=== PATIENT | male | born 1955 | race Caucasian/White ===

== ENCOUNTER 2018-06-09 16:02 | Inpatient (IN) ==
[2018-06-09 17:00] LABS: Basophils # 0.1 K/mcL (0.0-0.2); Basophils % 0.3 %; Eosinophils # 0.4 K/mcL (0.0-0.6); Eosinophils % 2.3 %; Hematocrit 37.2 % (37.5-50.1); Hemoglobin 12.8 g/dL (12.9-16.9); Immature Granulocytes % 0.4 % (0-4); Lymphocytes # 10.7 K/mcL (0.6-4.6); Lymphocytes % 59.2 %; Mean Corpuscular HGB Conc 34.4 g/dL (31.6-35.5); Mean Corpuscular Hemoglobin 30.3 pg (28.0-33.3); Mean Corpuscular Volume 88.2 fL (83.0-100.0); Mean Platelet Volume 9.7 fL (9.4-12.4); Monocytes # 0.8 K/mcL (0.0-1.3); Monocytes % 4.4 %; Platelet Count 277 K/mcL (140-400); Red Blood Count 4.22 M/mcL (4.19-5.50); Segmented Neutrophils % 33.4 %
[2018-06-09 17:03] LABS: Neutrophils # 6.1 K/mcL (1.6-8.9)
[2018-06-09 17:19] LABS: Calcium 9.3 mg/dL (8.6-10.3); Potassium 3.9 mEq/L (3.5-5.1)
[2018-06-09] MEDS ORDERED: Cefepime HCl 2,000 MG in 0.9 % Sodium Chloride Mini Bag 100 ML IVPB STA (17:38)
[2018-06-09] MEDS ORDERED: 0.9 % Sodium Chloride 1,000 ML IVC ONE (17:38)
--- NOTE | 2018-06-09 18:08 | Emergency Department Note ---
Disposition Clinical Impression: Osteomyelitis Qualifiers: Osteomyelitis type: unspecified type Osteomyelitis location: foot Laterality: left Qualified Code(s): M86.9 - Osteomyelitis, unspecified Disposition: Admitted As Inpatient Condition: Good Referrals: Skye Callahan CNP [Primary Care Provider] - Forms: ED Satisfaction Letter Extremity Problem HPI - General Chief complaint: ED Extremity Problem,Nontraumatic Stated complaint: LEFT FOOT INFECTION Time Seen by Provider: 06/09/18 16:15 Source: patient Mode of arrival: ambulatory Limitations: no limitations Nursing Notes Reviewed: Yes Vital Signs Reviewed: Yes - History of Present Illness HPI Narrative: Patient brought in today for evaluation of concern for osteomyelitis. Patient had x-ray at urgent care that resulted today and they called the police to locate him secondary to him not having a phone. He was in the [place] and the police notified him of results and brought here to [facility]. Patient states swelling toes but that has been constant for what he describes as "quite a while" but significantly worse over the last 3 days. Patient has had fevers and chills and generalized nausea Pain Scale: 6 - Related Data Home Medications Medication Instructions Recorded Confirmed Atorvastatin Calcium [Lipitor] 20 mg PO HS 06/09/18 06/09/18 Doxycycline Hyclate [Doxycycline 100 mg PO BID 06/09/18 06/09/18 Hyclate] Gabapentin [Neurontin] 1,200 mg PO TID 06/09/18 06/09/18 Insulin Lispro Protamin/Lispro 20 units SQ BID 06/09/18 06/09/18 [Humalog Mix 50-50 Kwikpen] Metformin HCl [Metformin HCl] 1,000 mg PO BID 06/09/18 06/09/18 Metoprolol Tartrate [Metoprolol 100 mg PO DAILY 06/09/18 06/09/18 Tartrate] Allergies Allergy/AdvReac Type Severity Reaction Status Date / Time Penicillins [PCN] Allergy Anaphylaxis Verified 06/09/18 18:25 Tetanus Vaccines and Toxoid Allergy Anaphylaxis Verified 06/09/18 18:25 Review of Systems: As Per HPI Constitutional: Reports: fever, chills, weakness (generalized) Cardiovascular: Denies: chest pain Respiratory: Denies: cough, dyspnea Gastrointestinal: Reports: nausea. Denies: abdominal pain, vomiting Musculoskeletal: Reports: joint swelling, arthralgia Integumentary: Reports: lesions (erythema) Neurological: Denies: headache Past Medical History - Past Medical History Medical history: Reports: CVA, diabetes, hyperlipidemia, myocardial infarction Psychiatric history: Reports: anxiety - Social History Smoking Status: Never smoker Smokeless Tobacco Status: No Alcohol use: Reports: none Drug use: Reports: none Physical Exam General appearance: NAD, conversant Eyes: anicteric sclerae, moist conjunctivae; no lid-lag; PERRL HENT: Atraumatic; oropharynx clear with moist mucous membranes Neck: Normal appearance; Trachea midline Chest: Symmetrical chest rise; No respiratory distress Extremities: Erythema left foot with associated tenderness. Decreased sensation to lower foot. Decreased sensation to toes described as chronic. Skin: Normal temperature, turgor and texture; no rash, ulcers or subcutaneous nodules Psych: Appropriate mood and affect Neuro: Awake and alert Course - Reevaluation(s) Reevaluation #1: Patient with osteolytic lesion consistent with osteomyelitis to the left foot. The patient's has elevated WBC, ESR, CRP. Patient treated with vancomycin. Discussed with pharmacy. They recommend secondary to penicillin allergy starting with meropenem for broad-spectrum antibiotics. - Consultations Consultation #1: Discussed with Dr. Ness. He will be evaluated while in the hospital for possible surgery. He will see him in the morning. Consultation #2: Discussed with hospitalist. Patient accepted for admission. Vital Signs Temperature 98.3 F 06/09/18 16:05 Pulse Rate 77 06/09/18 16:05 Respiratory Rate 18 06/09/18 16:05 Blood Pressure 174/87 06/09/18 16:05 O2 Sat by Pulse Oximetry 96 06/09/18 16:05 Temperature 98.3 F 06/09/18 16:10 Pulse Rate 77 06/09/18 16:10 Respiratory Rate 18 06/09/18 16:10 Blood Pressure 174/87 06/09/18 16:10 O2 Sat by Pulse Oximetry 96 06/09/18 16:10 Oxygen Delivery Oxygen Delivery Room Air Extremity Problem, Nontraumati - Lab Data Result diagrams: 06/09/18 16:48 06/09/18 16:48 Lab Results 06/09/18 06/09/18 06/09/18 Range/Units 16:48 16:48 16:48 WBC 18.1 H (4.3-11.1) K/mcL RBC 4.22 (4.19-5.50) M/mcL Hgb 12.8 L (12.9-16.9) g/dL Hct 37.2 L (37.5-50.1) % MCV 88.2 (83.0-100.0) fL MCH 30.3 (28.0-33.3) pg MCHC 34.4 (31.6-35.5) g/dL RDW 14.0 (11.5-14.5) % Plt Count 277 (140-400) K/mcL MPV 9.7 (9.4-12.4) fL Immature Gran % 0.4 (0-4) % Seg Neutrophils % 33.4 % Lymphocytes % 59.2 % Monocytes % 4.4 % Eosinophils % 2.3 % Basophils % 0.3 % Neutrophils # 6.1 (1.6-8.9) K/mcL Lymphocytes # 10.7 H (0.6-4.6) K/mcL Monocytes # 0.8 (0.0-1.3) K/mcL Eosinophils # 0.4 (0.0-0.6) K/mcL Basophils # 0.1 (0.0-0.2) K/mcL ESR 62 H (0-10) mm/hr Sodium 140 (136-145) mEq/L Potassium 3.9 (3.5-5.1) mEq/L Chloride 109 H (98-107) mEq/L Carbon Dioxide 23 (23-29) mEq/L BUN 27 H (8-23) mg/dL Creatinine 1.67 H (0.70-1.30) mg/dL Est GFR ( Amer) 50 L (> 60) Est GFR (Non-Af Amer) 42 L (> 60) BUN/Creatinine Ratio 16 (6-26) Glucose 200 H (70-105) mg/dL Calculated Osmolality 301 H (280-300) Lactic Acid (0.5-2.2) mmol/L Calcium 9.3 (8.6-10.3) mg/dL C-Reactive Protein 28 H (Less than 10) mg/L 06/09/18 Range/Units 16:48 WBC (4.3-11.1) K/mcL RBC (4.19-5.50) M/mcL Hgb (12.9-16.9) g/dL Hct (37.5-50.1) % MCV (83.0-100.0) fL MCH (28.0-33.3) pg MCHC (31.6-35.5) g/dL RDW (11.5-14.5) % Plt Count (140-400) K/mcL MPV (9.4-12.4) fL Immature Gran % (0-4) % Seg Neutrophils % % Lymphocytes % % Monocytes % % Eosinophils % % Basophils % % Neutrophils # (1.6-8.9) K/mcL Lymphocytes # (0.6-4.6) K/mcL Monocytes # (0.0-1.3) K/mcL Eosinophils # (0.0-0.6) K/mcL Basophils # (0.0-0.2) K/mcL ESR (0-10) mm/hr Sodium (136-145) mEq/L Potassium (3.5-5.1) mEq/L Chloride (98-107) mEq/L Carbon Dioxide (23-29) mEq/L BUN (8-23) mg/dL Creatinine (0.70-1.30) mg/dL Est GFR ( Amer) (> 60) Est GFR (Non-Af Amer) (> 60) BUN/Creatinine Ratio (6-26) Glucose (70-105) mg/dL Calculated Osmolality (280-300) Lactic Acid 1.2 (0.5-2.2) mmol/L Calcium (8.6-10.3) mg/dL C-Reactive Protein (Less than 10) mg/L
[2018-06-09] MEDS ORDERED: Dextrose Gel 15 GM/37.5 ML TUBE PO PRN ×2 (19:00)
[2018-06-09] MEDS ORDERED: D5% in Water 1,000 ML IVC PRN (19:00)
[2018-06-09] MEDS ORDERED: *HR* Dextrose 50 % in Water (Syg) 50 ML SYRINGE IVP PRN (19:00)
[2018-06-09] MEDS ORDERED: Acetaminophen 325 MG TABLET PO PRN (19:06)
[2018-06-09] MEDS ORDERED: Naloxone 0.4 MG/ML INJ IVP PRN (19:06)
--- NOTE | 2018-06-09 19:14 | Internal Med History&Physical ---
Date of Encounter: 06/09/18 Time of Encounter: 19:10 Internal Medicine - H&P: HPI Chief complaint: "I was told to come in by my regular doctor for left foot infection" Admitted From: Emergency Dept Plans for Post Hospital Care: Home History of present illness: Mr. Campos is a 63 year old male who presented to ED today after being told by his PCP to come to ED because x-ray of LLE showed concern for bone infection. He states that all the LLE issues started about 6 weeks ago when he had a stroke. He does not recall exactly how he hurt his foot, but thinks it may have been when he was "out of it" from his stroke. He states that he does not have any residual effects from the recent stroke. He was followed by bone doctor who pinned a toe fracture in his LLE. He saw his PCP yesterday for routine follow up, and he ordered a left foot x-ray. He states that he was told today to come to ED because of concerns of worsening infection. Chart review shows that he is currently being treated with doxycycline. He denies any LLE pain. He denies fever, chills, chest pain, SOB, nausea, vomiting, abdominal pain, changes in bladder, and changes in bowels. He also states that he has had left calf swelling for few weeks. He had outpatient imaging scheduled to rule out DVT, but this has not yet been completed. There is no tenderness or left calf. He has no other complaints at this time. In the ED, labwork was remarkable for WBC 18.1 and creatinine of 1.67. Blood glucose was 200. CRP was 28. Left foot x-ray showed destructive lesions in the distal second metatarsal and the second proximal phalanx most suggestive of osteomyelitis with lateral subluxation of the second toe; there was also a non- displaced fracture of the third middle phalanx. ED physician spoke with industrial health engineer, who agrees to see in consult. I was asked to admit patient for left foot osteomyelitis. Past Med Surg Social Fam HX - Past Medical History Attestation: Yes The following information was validated with the patient. Source: patient Medical history: CVA, diabetes, hyperlipidemia, myocardial infarction Psychiatric history: anxiety - Past Surgical History Additional surgical history: back surgery - Social History Smoking Status: Never smoker Smokeless Tobacco Status: No Alcohol use: none Drug use: none - Additional Family History Additional family history: No significant PMH per patient. Internal Medicine - H&P: Meds Atorvastatin Calcium [Lipitor] 20 mg PO HS 06/09/18 [History] Doxycycline Hyclate [Doxycycline Hyclate] 100 mg PO BID 06/09/18 [History] Gabapentin [Neurontin] 1,200 mg PO TID 06/09/18 [History] Insulin Lispro Protamin/Lispro [Humalog Mix 50-50 Kwikpen] 20 units SQ BID 06/09 [History] Metformin HCl [Metformin HCl] 1,000 mg PO BID 06/09/18 [History] Metoprolol Tartrate [Metoprolol Tartrate] 100 mg PO DAILY 06/09/18 [History] 3 Allergy/AdvReac Type Severity Reaction Status Date / Time Penicillins [PCN] Allergy Anaphylaxis Verified 06/09/18 18:25 Tetanus Vaccines and Toxoid Allergy Anaphylaxis Verified 06/09/18 18:25 All Systems PM: A 10-system review of systems was performed and is negative for pertinent findings except as documented above in the HPI. - Constitutional Vitals: Temp Pulse Resp BP Pulse Ox 98.3 F 70 18 162/88 97 06/09/18 16:10 06/09/18 19:03 06/09/18 19:03 06/09/18 19:03 06/09/18 19:03 General appearance: Present: cooperative, A&O X 3, morbidly obese, pleasant, no acute distress, answers questions appropriately - Head Head exam: Present: atraumatic, normocephalic - Eye Eye exam: Present: EOMI, PERRL. Absent: conjunctival injection, nystagmus, scleral icterus - ENT ENT exam: Present: mucous membranes moist, normal external ear exam, normal oropharynx - Neck Neck exam general surgery: Present: supple, trachea midline. Absent: lymphadenopathy, tenderness, thyromegaly - Respiratory Respiratory exam: Present: CTAB. Absent: accessory muscle use, rales, rhonchi, wheezes Additional comments: Normal WOB - Cardiovascular Cardiovascular exam: Present: RRR, +S1, +S2. Absent: diastolic murmur, gallop, rubs, systolic murmur Additional comments: 1+ LLE calf, no RLE edema - GI/Abdominal GI/Abdominal exam: Present: normal bowel sounds, soft. Absent: distended, hepatomegaly, mass, splenomegaly, tenderness - Psychiatric Psychiatric exam: Present: normal affect, normal mood. Absent: agitated, anxious, depressed - Skin Skin exam: Present: dry, intact, warm. Absent: cyanosis Additional comments: 4 cm diameter area of erythema, edema, and surrounding induration of dorsal left foot, no TTP, no visible abnormalities of LLE digits Internal Med - H&P Results - Labs CBC & Chem 7: 06/09/18 16:48 06/09/18 16:48 Labs: Short CBC 06/09/18 Range/Units 16:48 WBC 18.1 H (4.3-11.1) K/mcL Hgb 12.8 L (12.9-16.9) g/dL Hct 37.2 L (37.5-50.1) % Plt Count 277 (140-400) K/mcL Neutrophils # 6.1 (1.6-8.9) K/mcL BMP 06/09/18 16:48 Sodium 140 Potassium 3.9 Chloride 109 H Carbon Dioxide 23 BUN 27 H Creatinine 1.67 H Glucose 200 H Calcium 9.3 - Impressions ITS Impressions Foot X-Ray 06/09/18 16:35 IMPRESSION: 1. Destructive lesions in the distal second metatarsal and the second proximal phalanx most suggestive of osteomyelitis with lateral subluxation of the second toe. 2. Nondisplaced fracture of the third middle phalanx. D/ / 06/09/2018 17:16:09 Kashif Barragan MD / [facility] Interpreting Provider: Kashif Barragan MD - Assessment and plan (1) Foot osteomyelitis, left Current Visit: Yes Status: Acute Assessment and plan: Admit inpatient with telemetry. Podiatry has been consulted by ED; will await further recommendations. NPO after midnight in case needs surgery. Obtain MRI left foot in AM. Continue IV meropenem and IV vancomycin started in ED for now , given his multiple antibiotic allergies. Will likely need prolonged IV antibiotic course if confirmed osteomyelitis. Will consult SW and ID to help with antibiotic selection and discharge planning. IVF as per below. Will monitor vitals closely. Tylenol PRN mild pain/fever. [place] PRN moderate pain. Oxycodone PRN severe pain. Qualifiers: Osteomyelitis type: unspecified type Qualified Code(s): M86.9 - Osteomyelitis, unspecified (2) Foot fracture, left Current Visit: Yes Status: Chronic Assessment and plan: Podiatry consulted; appreciate input. This is likely subacute from injury 6 weeks ago. Was previously pinned. Pain control as per above. Will await further recommendations from podiatry. Qualifiers: Encounter type: sequela Fracture type: closed Qualified Code(s): S92.902S - Unspecified fracture of left foot, sequela (3) HTN (hypertension) Current Visit: Yes Status: Chronic Assessment and plan: Continue home medications. He states that metoprolol is also for arrhythmia, but not sure what kind. Qualifiers: Hypertension type: essential hypertension Qualified Code(s): I10 - Essential (primary) hypertension (4) HLD (hyperlipidemia) Current Visit: Yes Status: Chronic Assessment and plan: Continue home medications. Qualifiers: Hyperlipidemia type: mixed hyperlipidemia Qualified Code(s): E78.2 - Mixed hyperlipidemia (5) Type 2 diabetes mellitus with peripheral neuropathy Current Visit: Yes Status: Chronic Assessment and plan: Currently hyperglycemic. Start accuchecks and high dose SSI QID AC/HS. Continue home insulin regimen. Hold home metformin. (6) Acute kidney injury Current Visit: Yes Status: Acute Assessment and plan: Continue IV NS at 125 ml/hr. Recheck BMP in AM. (7) Leg edema, left Current Visit: Yes Status: Acute Assessment and plan: Left calf swollen for some time now. He states that he was supposed to be getting imaging as outpatient to rule out DVT. Will order LLE U/S to rule out DVT. (8) DVT prophylaxis Current Visit: Yes Status: Acute Assessment and plan: Start lovenox 40 mg SQ QD. - Time Spent With Patient Total time spent is greater than 50% in coordination of care (as documented) at patient's floor/unit and/or counseling patient: less than 15 minutes
[2018-06-09 19:35] LABS: Estimated Average Glucose 246 mg/dl; Hemoglobin A1C 10.2 %
[2018-06-09] MEDS: Insulin LISPRO 300 UNITS/3 ML VIAL SQ SCH (21:00)
[2018-06-09] MEDS ORDERED: Gabapentin 400 MG CAPSULE PO SCH (21:00)
[2018-06-09] MEDS: INSULIN LISPRO PROTAMIN SQ SCH (21:57)
[2018-06-09] MEDS: LISPRO SQ SCH (21:57)
[2018-06-09] MEDS ORDERED: Ondansetron 4 MG/2 ML VIAL IVP PRN (22:29)
[2018-06-10] MEDS: *HR* OxyCODONE Immed Rel 5 MG TABLET PO PRN ×3 (00:39→18:22)
[2018-06-10] MEDS: Meropenem 1,000 MG in 0.9 % Sodium Chloride Mini Bag 100 ML IVPB SCH ×3 (00:47→21:44)
[2018-06-10] MEDS: 0.9 % Sodium Chloride 1,000 ML IVC SCH ×3 (00:49→11:17)
[2018-06-10 01:17] LABS: Basophils # 0.1 K/mcL (0.0-0.2); Basophils % 0.4 %; Eosinophils % 1.9 %; Hematocrit 38.3 % (37.5-50.1); Hemoglobin 12.6 g/dL (12.9-16.9); Immature Granulocytes % 0.4 % (0-4); Lymphocytes # 10.4 K/mcL (0.6-4.6); Lymphocytes % 57.9 %; Mean Corpuscular HGB Conc 32.9 g/dL (31.6-35.5); Mean Corpuscular Volume 88.2 fL (83.0-100.0); Mean Platelet Volume 9.7 fL (9.4-12.4); Monocytes # 0.7 K/mcL (0.0-1.3); Neutrophils # 6.4 K/mcL (1.6-8.9); Platelet Count 275 K/mcL (140-400); Red Blood Count 4.34 M/mcL (4.19-5.50); Red Cell Distribution Width 14.2 % (11.5-14.5); Segmented Neutrophils % 35.4 %
[2018-06-10 01:21] LABS: Eosinophils # 0.3 K/mcL (0.0-0.6)
[2018-06-10 01:35] LABS: BUN/Creatinine Ratio 17 (6-26); Blood Urea Nitrogen 24 mg/dL (8-23); Calcium 9.3 mg/dL (8.6-10.3); Carbon Dioxide 22 mEq/L (23-29); Chloride 107 mEq/L (98-107); Glucose 208 mg/dL (70-105); Osmolality,Calculated 298 (280-300); Potassium 4.1 mEq/L (3.5-5.1); Sodium 139 mEq/L (136-145); eGFR For Non-African Americans 50 (> 60)
[2018-06-10 01:49] LABS: Platelet Estimate Normal (Normal); Reactive Lymphocytes Present (Not Present)
[2018-06-10] MEDS: Insulin LISPRO 300 UNITS/3 ML VIAL SQ SCH ×5 (01:59→20:13)
[2018-06-10] MEDS: *HR* Enoxaparin 40 MG/0.4 ML SYRINGE SQ SCH (06:02)
--- NOTE | 2018-06-10 08:02 | Internal Med Progress Note ---
Hospitalist Progress Note - Encounter Date of Encounter: 06/10/18 Time of Encounter: 07:58 - Subjective Interval History: Patient had no acute events overnight. He states that he is doing "fine." He denies fever, chills, chest pain, SOB, nausea, vomiting, or abdominal pain. He had some left foot pain overnight, but now better after getting pain medicine. He has no complaints at this time. - Exam Vitals: Temp Pulse Resp BP Pulse Ox 98.3 F 75 16 145/80 94 06/10/18 07:34 06/10/18 07:34 06/10/18 07:34 06/10/18 07:34 06/10/18 07:34 Exam: Gen - Awake, alert, no acute distress HEENT - NCAT, PERRLA, EOMI, hearing grossly intact, oropharynx benign CV - RRR, normal S1 and S2, no M/R/G, trace L > R BLE edema Resp - Normal WOB, CTAB, no W/R/R GI - Soft, NT/ND, no masses, normal bowel sounds, no HSP Skin - Warm, dry, mild erythema/edema of left dorsal foot with induration and without TTP, no other rashes/lesions/ulcers Psych - Normal mood and affect, no depression or anxiety - Assessment and Plan (1) Foot osteomyelitis, left Current Visit: Yes Status: Acute Assessment and Plan: Admit inpatient with telemetry. Podiatry has been consulted by ED; will await further recommendations. NPO after midnight in case needs surgery. Obtain MRI left foot in AM. Continue IV meropenem and IV vancomycin started in ED for now , given his multiple antibiotic allergies. Will likely need prolonged IV antibiotic course if confirmed osteomyelitis. Will consult SW and ID to help with antibiotic selection and discharge planning. IVF as per below. Will monitor vitals closely. Tylenol PRN mild pain/fever. [place] PRN moderate pain. Oxycodone PRN severe pain. 06/10 - Podiatry and ID consulted; appreciate input. MRI confirms osteomyelitis and fractures. Continue IV meropenem and IV vancomycin; will await further antibiotic recommendations from ID. Continue IVF as per below. Monitor vitals closely. Continue pain control. Will await further recommendations from podiatry. (2) Foot fracture, left Current Visit: Yes Status: Chronic Assessment and Plan: Podiatry consulted; appreciate input. This is likely subacute from injury 6 weeks ago. Was previously pinned. Pain control as per above. Will await further recommendations from podiatry. 06/10 - Podiatry consulted; appreciate input. Pain control as per above. Will await further recommendations from podiatry. (3) HTN (hypertension) Current Visit: Yes Status: Chronic Assessment and Plan: Continue home medications. He states that metoprolol is also for arrhythmia, but not sure what kind. 06/10- Continue home medications. (4) HLD (hyperlipidemia) Current Visit: Yes Status: Chronic Assessment and Plan: Continue home medications. 06/10 - Continue home medications. (5) Type 2 diabetes mellitus with peripheral neuropathy Current Visit: Yes Status: Chronic Assessment and Plan: Currently hyperglycemic. Start accuchecks and high dose SSI QID AC/HS. Continue home insulin regimen. Hold home metformin. 06/10 - Continue accuchecks and high dose SSI QID AC/HS. Add levemir 10 units SQ daily. Hold home metformin. (6) Acute kidney injury Current Visit: Yes Status: Acute Assessment and Plan: Continue IV NS at 125 ml/hr. Recheck BMP in AM. 06/10- Creatinine improving. Continue IVF. Recheck BMP in AM. (7) Leg edema, left Current Visit: Yes Status: Acute Assessment and Plan: Left calf swollen for some time now. He states that he was supposed to be getting imaging as outpatient to rule out DVT. Will order LLE U/S to rule out DVT. 06/10 - LLE U/S ruled out DVT. Edema may be related to left foot infection. Treating left foot osteomyelitis as per above. (8) DVT prophylaxis Current Visit: Yes Status: Acute Assessment and Plan: Start lovenox 40 mg SQ QD. 06/10 - Continue SQ lovenox. - Time Spent with Patient Total time spent is greater than 50% in coordination of care (as documented) at patient's floor/unit and/or counseling patient: less than 15 minutes Plan of Care Discussed with: patient (Nurse) Internal Medicine: Result - Labs CBC & Chem 7: 06/10/18 00:47 06/10/18 00:47 Labs: Short CBC 06/10/18 Range/Units 00:47 WBC 18.0 H (4.3-11.1) K/mcL Hgb 12.6 L (12.9-16.9) g/dL Hct 38.3 (37.5-50.1) % Plt Count 275 (140-400) K/mcL Neutrophils # 6.4 (1.6-8.9) K/mcL BMP 06/10/18 00:47 Sodium 139 Potassium 4.1 Chloride 107 Carbon Dioxide 22 L BUN 24 H Creatinine 1.42 H Glucose 208 H Calcium 9.3 - VTE Documentation of Mechanical Device: Intermittent pneumatic compression device Consult Discharge Plan - Plan Referrals: Skye Callahan CNP [Primary Care Provider] - (1) Foot osteomyelitis, left Qualifiers: Osteomyelitis type: unspecified type Qualified Code(s): M86.9 - Osteomyelitis , unspecified (2) Foot fracture, left Qualifiers: Encounter type: sequela Fracture type: closed Qualified Code(s): S92.902S - Unspecified fracture of left foot, sequela (3) HTN (hypertension) Qualifiers: Hypertension type: essential hypertension Qualified Code(s): I10 - Essential (primary) hypertension (4) HLD (hyperlipidemia) Qualifiers: Hyperlipidemia type: mixed hyperlipidemia Qualified Code(s): E78.2 - Mixed hyperlipidemia
[2018-06-10] MEDS: LISPRO SQ SCH (09:09)
[2018-06-10] MEDS: INSULIN LISPRO PROTAMIN SQ SCH (09:09)
[2018-06-10] MEDS: Gabapentin 100 MG CAPSULE PO SCH ×2 (09:09→20:08)
[2018-06-10] MEDS: Metoprolol 100 MG TABLET PO SCH (09:13)
[2018-06-10] MEDS: Insulin DETEMIR 100 UNIT/ML X5UNITS SQ SCH ×2 (09:14→09:35)
[2018-06-10] MEDS: *HR* HYDROcodone/Acet 5/325 mg TABLET PO PRN (09:34)
[2018-06-10] MEDS ORDERED: Acetaminophen IV 1,000 MG/100 ML INFUS..BTL IVPB ONE (18:20)
[2018-06-11] MEDS: *HR* HYDROcodone/Acet 5/325 mg TABLET PO PRN (00:18)
[2018-06-11 01:42] LABS: BUN/Creatinine Ratio 16 (6-26); Blood Urea Nitrogen 21 mg/dL (8-23); Carbon Dioxide 24 mEq/L (23-29); Chloride 104 mEq/L (98-107); Glucose 353 mg/dL (70-105); Osmolality,Calculated 299 (280-300); Sodium 136 mEq/L (136-145); eGFR For Non-African Americans 54 (> 60)
[2018-06-11 02:39] LABS: Basophils # 0.1 K/mcL (0.0-0.2); Basophils % 0.3 %; Eosinophils # 0.3 K/mcL (0.0-0.6); Hematocrit 35.6 % (37.5-50.1); Immature Granulocytes % 0.4 % (0-4); Lymphocytes # 10.4 K/mcL (0.6-4.6); Lymphocytes % 62.8 %; Mean Corpuscular HGB Conc 33.7 g/dL (31.6-35.5); Mean Corpuscular Hemoglobin 29.7 pg (28.0-33.3); Mean Corpuscular Volume 88.1 fL (83.0-100.0); Monocytes # 0.6 K/mcL (0.0-1.3); Monocytes % 3.8 %; Neutrophils # 5.1 K/mcL (1.6-8.9); Platelet Count 292 K/mcL (140-400); Red Blood Count 4.04 M/mcL (4.19-5.50); Red Cell Distribution Width 14.2 % (11.5-14.5); Segmented Neutrophils % 30.7 %
[2018-06-11] MEDS: *HR* Enoxaparin 40 MG/0.4 ML SYRINGE SQ SCH (05:06)
[2018-06-11] MEDS ORDERED: *HR* FentaNYL (PF) 100 MCG/2 ML VIAL IVP PRN (07:47)
[2018-06-11] MEDS ORDERED: hydrOXYzine pamoate 25 MG CAPSULE PO STA (07:58)
[2018-06-11] MEDS ORDERED: hydrOXYzine pamoate 25 MG CAPSULE PO PRN (07:58)
[2018-06-11] MEDS ORDERED: *HR* FentaNYL (PF) 100 MCG/2 ML VIAL IVP STA (07:58)
--- NOTE | 2018-06-11 08:02 | Internal Med Progress Note ---
Hospitalist Progress Note - Encounter Date of Encounter: 06/11/18 Time of Encounter: 08:00 - Subjective Interval History: Patient had some increased pain and agitation yesterday evening. He states that he is restless. He is pacing around the room. I advised him to try to stay off of his feet and elevate his left foot. He was on medication by PCP for depression and anxiety, but he does not recall the name and it is not on home medication list. He denies fever, chills, chest pain, SOB, nausea, vomiting, or abdominal pain. He has no other complaints at this time. - Exam Vitals: Temp Pulse Resp BP Pulse Ox 98.3 F 68 16 123/65 95 06/11/18 07:47 06/11/18 07:47 06/11/18 07:47 06/11/18 07:47 06/11/18 07:47 Exam: Gen - Awake, alert, no acute distress HEENT - NCAT, PERRLA, EOMI, hearing grossly intact, oropharynx benign CV - RRR, normal S1 and S2, no M/R/G, trace L > R BLE edema Resp - Normal WOB, CTAB, no W/R/R GI - Soft, NT/ND, no masses, normal bowel sounds, no HSP Skin - Warm, dry, mild erythema/edema of left dorsal foot with induration and without TTP, no other rashes/lesions/ulcers Psych - Anxious mood and affect, no depression - Assessment and Plan (1) Foot osteomyelitis, left Current Visit: Yes Status: Acute Assessment and Plan: Admit inpatient with telemetry. Podiatry has been consulted by ED; will await further recommendations. NPO after midnight in case needs surgery. Obtain MRI left foot in AM. Continue IV meropenem and IV vancomycin started in ED for now , given his multiple antibiotic allergies. Will likely need prolonged IV antibiotic course if confirmed osteomyelitis. Will consult SW and ID to help with antibiotic selection and discharge planning. IVF as per below. Will monitor vitals closely. Tylenol PRN mild pain/fever. [place] PRN moderate pain. Oxycodone PRN severe pain. 06/10 - Podiatry and ID consulted; appreciate input. MRI confirms osteomyelitis and fractures. Continue IV meropenem and IV vancomycin; will await further antibiotic recommendations from ID. Continue IVF as per below. Monitor vitals closely. Continue pain control. Will await further recommendations from podiatry. 06/11 - Podiatry and ID consulted; appreciate input. MRI confirms osteomyelitis and fractures. LLE Venous Duplex WNL. Continue IV meropenem and IV vancomycin ; will await further antibiotic recommendations from ID. Continue IVF as per below. Monitor vitals closely. Continue pain control; added norco 10 for severe pain and IV fentanyl for breatkthrough pain today. Will await further recommendations from podiatry. (2) Foot fracture, left Current Visit: Yes Status: Chronic Assessment and Plan: Podiatry consulted; appreciate input. This is likely subacute from injury 6 weeks ago. Was previously pinned. Pain control as per above. Will await further recommendations from podiatry. 06/10 - Podiatry consulted; appreciate input. Pain control as per above. Will await further recommendations from podiatry. 06/11 - Podiatry consulted; appreciate input. Pain control as per above. Will await further recommendations from podiatry. Advised to keep weight off left foot. (3) HTN (hypertension) Current Visit: Yes Status: Chronic Assessment and Plan: Continue home medications. He states that metoprolol is also for arrhythmia, but not sure what kind. 06/10 - Continue home medications. 06/11 - Continue home medications. (4) HLD (hyperlipidemia) Current Visit: Yes Status: Chronic Assessment and Plan: Continue home medications. 06/10 - Continue home medications. 06/11 - Continue home medications. (5) Type 2 diabetes mellitus with peripheral neuropathy Current Visit: Yes Status: Chronic Assessment and Plan: Currently hyperglycemic. Start accuchecks and high dose SSI QID AC/HS. Continue home insulin regimen. Hold home metformin. 06/10 - Continue accuchecks and high dose SSI QID AC/HS. Add levemir 10 units SQ daily. Hold home metformin. 06/11 - Hyperglycemia. Continue accuchecks and high dose SSI QID AC/HS. Increase levemir to 15 units BIDWM. Hold home metformin. (6) Acute kidney injury Current Visit: Yes Status: Acute Assessment and Plan: Continue IV NS at 125 ml/hr. Recheck BMP in AM. 06/10- Creatinine improving. Continue IVF. Recheck BMP in AM. 06/11 - Creatinine continues to improve. IVF discontinued yesterday per patient request. Encourage PO hydration. Recheck BMP in AM. (7) Leg edema, left Current Visit: Yes Status: Acute Assessment and Plan: Left calf swollen for some time now. He states that he was supposed to be getting imaging as outpatient to rule out DVT. Will order LLE U/S to rule out DVT. 06/10 - LLE U/S ruled out DVT. Edema may be related to left foot infection. Treating left foot osteomyelitis as per above. 06/11 - LLE Venous Duplex WNL. Treating left foot osteomyelitis as per above. (8) Anxiety Current Visit: Yes Status: Acute Assessment and Plan: Start hydroxyzine 50 mg PO Q6H PRN anxiety. (9) DVT prophylaxis Current Visit: Yes Status: Acute Assessment and Plan: Start lovenox 40 mg SQ QD. 06/10 - Continue SQ lovenox. 06/11 - Continue SQ lovenox. - Time Spent with Patient Total time spent is greater than 50% in coordination of care (as documented) at patient's floor/unit and/or counseling patient: less than 15 minutes Plan of Care Discussed with: patient (Nurse) Internal Medicine: Result - Labs CBC & Chem 7: 06/11/18 00:50 06/11/18 00:50 Labs: Short CBC 06/11/18 Range/Units 00:50 WBC 16.6 H (4.3-11.1) K/mcL Hgb 12.0 L (12.9-16.9) g/dL Hct 35.6 L (37.5-50.1) % Plt Count 292 (140-400) K/mcL Neutrophils # 5.1 (1.6-8.9) K/mcL BMP 06/11/18 00:50 Sodium 136 Potassium 4.0 Chloride 104 Carbon Dioxide 24 BUN 21 Creatinine 1.34 H Glucose 353 H Calcium 9.0 - VTE Documentation of Mechanical Device: Intermittent pneumatic compression device Consult Discharge Plan - Plan Referrals: Skye Callahan, [employer] [Primary Care Provider] - (1) Foot osteomyelitis, left Qualifiers: Osteomyelitis type: unspecified type Qualified Code(s): M86.9 - Osteomyelitis , unspecified (2) Foot fracture, left Qualifiers: Encounter type: sequela Fracture type: closed Qualified Code(s): S92.902S - Unspecified fracture of left foot, sequela (3) HTN (hypertension) Qualifiers: Hypertension type: essential hypertension Qualified Code(s): I10 - Essential (primary) hypertension (4) HLD (hyperlipidemia) Qualifiers: Hyperlipidemia type: mixed hyperlipidemia Qualified Code(s): E78.2 - Mixed hyperlipidemia
[2018-06-11] MEDS ORDERED: Insulin DETEMIR 100 UNIT/ML X5UNITS SQ SCH (08:07)
[2018-06-11] MEDS: Metoprolol 100 MG TABLET PO SCH (08:28)
[2018-06-11] MEDS: Meropenem 1,000 MG in 0.9 % Sodium Chloride Mini Bag 100 ML IVPB SCH ×2 (08:28→20:11)
[2018-06-11] MEDS: Gabapentin 100 MG CAPSULE PO SCH ×2 (08:28→20:13)
[2018-06-11] MEDS: Insulin LISPRO 300 UNITS/3 ML VIAL SQ SCH ×4 (08:29→20:13)
[2018-06-11] MEDS: Insulin DETEMIR 100 UNIT/ML X5UNITS SQ SCH ×2 (09:08→20:13)
--- NOTE | 2018-06-11 14:50 | Podiatry Consult Note ---
Date of Encounter: 06/11/18 Time of Encounter: 13:35 Assessment and Plan (1) Abscess of left foot Current visit: Yes Status: Acute I had a thorough review with the patient regarding his condition, my findings, and his treatment options. We discussed his history of recent surgery and the infection which does appear to be present. We discussed the findings of the MRI. He was shown a picture of his x-ray and the destructive changes of the second MTP joint which are likely due to infection in my opinion. With the abscess in the first interspace adjacent to the first metatarsophalangeal joint I would suspect that this bone is also infected as suggested by the MRI. We discussed IV antibiotics and surgical intervention for treatment of his infection. We discussed incision and drainage of the left foot abscess and amputation of part of the left foot which could include an amputation of the second toe and metatarsal bone with debridement of bone 1st MTP joint or amputation the first and second toe and metatarsal bones or if the infection bad enough a transmetatarsal amputation removing all the toes and part of the foot. Patient is in agreement and says he understands that there are no guarantees with a diabetic foot infection that his foot could be salvaged. Encouraged glycemic control and discussed wound healing and then an A1c of 10.4 % is too high to be conducive to wound healing. We also discussed that this surgery could be a staged procedure and may be left open and would either have to heal on its own or if the wound became clean at a later date may be closed. Nature of the above procedures, risks first benefits potential complications and consequences of surgery were discussed at length. All of his questions were answered and the informed consent was signed. NPO after breakfast. We will also check his vascular status with noninvasive studies however his infection will necessitate early surgical intervention on his left foot. (2) Osteomyelitis Current visit: Yes Status: Acute See above Qualifiers: Osteomyelitis type: subacute Osteomyelitis location: foot Laterality: left Qualified Code(s): M86.272 - Subacute osteomyelitis, left ankle and foot History of Present Illness HPI: Mr. Campos is a 63 year old diabetic male with an A1c of 10.4% who says his foot problems started when he had a stroke on April 27. He says he was at [facility] and on April 28 in the hospital he had a surgery on his left second toe to straighten it out and had a pin exiting the digit. He says he does not know this doctor's name. He says he has seen Dr. Marquez in the past and followed up with him after he was released from the hospital. He says about [address] Marquez pulled the pin from his left second toe. He says his left second toe then started to get red and so did his foot. He said it was not getting better and he came to the ER a couple days ago. He says he anticipated that he would have to have at least his left second toe amputated if not more prior to coming to the hospital. He does relate he thinks he has blood flow issues in his legs. Denies f/c/n/v/sob/cp. Past Med Surg Social Fam HX - Past Medical History Medical history: CVA, diabetes, hyperlipidemia, myocardial infarction Psychiatric history: anxiety - Past Surgical History Additional surgical history: back surgery - Social History Smoking Status: Never smoker Smokeless Tobacco Status: No Alcohol use: none Drug use: none - Family History Father Living Status: Hx Family Cardiac Disorders: Yes Medications and Allergies Atorvastatin Calcium [Lipitor] 20 mg PO HS 06/09/18 [History] Doxycycline Hyclate [Doxycycline Hyclate] 100 mg PO BID 06/09/18 [History] Gabapentin [Neurontin] 100 mg PO BID 06/09/18 [History] Insulin Lispro Protamin/Lispro [Humalog Mix 50-50 Kwikpen] 20 units SQ BID 06/09 [History] Metformin HCl [Metformin HCl] 1,000 mg PO BID 06/09/18 [History] Metoprolol Tartrate [Metoprolol Tartrate] 100 mg PO DAILY 06/09/18 [History] 3 Allergy/AdvReac Type Severity Reaction Status Date / Time Penicillins [PCN] Allergy Anaphylaxis Verified 06/09/18 18:25 Tetanus Vaccines and Toxoid Allergy Anaphylaxis Verified 06/09/18 18:25 All Systems Reviewed: The remainder of the systems were reviewed and are negative - Constitutional Constitutional: no fever(s), no frequent falls - Cardiovascular Cardiovascular: no chest pain, no dyspnea - Respiratory Respiratory: no cough, no dyspnea - Musculoskeletal Musculoskeletal: joint swelling, numbness, tingling Physical Exam - Constitutional Vitals: Temp Pulse Resp BP Pulse Ox 97.6 F 56 18 128/86 96 06/11/18 12:46 06/11/18 12:46 06/11/18 12:46 06/11/18 12:46 06/11/18 12:46 Exam: Well developed obese male in no acute distress Capillary refill time less than 3 seconds 5 digits left foot. Left foot is warm to touch. Unable to palpate DP pulse. Mild to moderate edema of the left foot. Dorsum of the foot has erythema extending to the midfoot area over the first metatarsal and interspace and 2nd metatarsal. His foot is warm to touch. No fluctuance or crepitus with palpation. absent protective sensation. X-ray: Destructive changes of the second MTP joint distal aspect of metatarsal and proximal phalanx base. Questionable cortical disruption base of proximal phalanx of the first MTP joint. No soft tissue gas. MRI: Osteomyelitis first MTP joint and second MTP joint with abscess first interspace. Results - Labs Result Diagrams: 06/11/18 00:50 06/11/18 00:50 Labs: Abnormal lab results WBC 16.6 K/mcL (4.3-11.1) H 06/11/18 00:50 RBC 4.04 M/mcL (4.19-5.50) L 06/11/18 00:50 Hgb 12.0 g/dL (12.9-16.9) L 06/11/18 00:50 Hct 35.6 % (37.5-50.1) L 06/11/18 00:50 Lymphocytes # 10.4 K/mcL (0.6-4.6) H 06/11/18 00:50 Reactive Lymphocytes Present (Not Present) A 06/10/18 00:47 ESR 62 mm/hr (0-10) H 06/09/18 16:48 Creatinine 1.34 mg/dL (0.70-1.30) H 06/11/18 00:50 Est GFR (Non-Af Amer) 54 (> 60) L 06/11/18 00:50 Glucose 353 mg/dL (70-105) H 06/11/18 00:50 POC Glucose 268 mg/dL (70-99) H 06/11/18 11:48 Hemoglobin A1c 10.2 % (-5.6) H 06/09/18 16:48 C-Reactive Protein 28 mg/L (Less than 10) H 06/09/18 16:48 Vancomycin Trough 12 mcg/mL (5-10) H 06/11/18 06:45 H & H 06/11/18 Range/Units 00:50 Hgb 12.0 L (12.9-16.9) g/dL Hct 35.6 L (37.5-50.1) % All other labs normal. Consult Discharge Plan - Plan Referrals: Skye Callahan CNP [Primary Care Provider] -
[2018-06-11] MEDS: *HR* HYDROcodone/Acet 10/325 mg TABLET PO PRN (15:48)
[2018-06-12] MEDS: *HR* HYDROcodone/Acet 10/325 mg TABLET PO PRN ×2 (01:16→22:00)
[2018-06-12 01:28] LABS: Basophils % 0.2 %; Eosinophils # 0.4 K/mcL (0.0-0.6); Eosinophils % 2.4 %; Hematocrit 34.3 % (37.5-50.1); Hemoglobin 11.5 g/dL (12.9-16.9); Immature Granulocytes % 0.3 % (0-4); Lymphocytes # 10.4 K/mcL (0.6-4.6); Lymphocytes % 64.8 %; Mean Corpuscular HGB Conc 33.5 g/dL (31.6-35.5); Mean Corpuscular Hemoglobin 29.3 pg (28.0-33.3); Mean Corpuscular Volume 87.5 fL (83.0-100.0); Mean Platelet Volume 9.5 fL (9.4-12.4); Monocytes # 0.7 K/mcL (0.0-1.3); Monocytes % 4.6 %; Neutrophils # 4.4 K/mcL (1.6-8.9); Platelet Count 246 K/mcL (140-400); Red Blood Count 3.92 M/mcL (4.19-5.50); Segmented Neutrophils % 27.7 %
[2018-06-12 01:47] LABS: Platelet Estimate Normal (Normal); Reactive Lymphocytes Present (Not Present); Toxic Granulation Present (Not Present)
[2018-06-12 01:50] LABS: BUN/Creatinine Ratio 15 (6-26); Blood Urea Nitrogen 20 mg/dL (8-23); Calcium 8.9 mg/dL (8.6-10.3); Carbon Dioxide 26 mEq/L (23-29); Chloride 107 mEq/L (98-107); Glucose 169 mg/dL (70-105); Osmolality,Calculated 295 (280-300); Potassium 3.8 mEq/L (3.5-5.1); Sodium 139 mEq/L (136-145); eGFR For Non-African Americans 56 (> 60)
[2018-06-12] MEDS: *HR* Enoxaparin 40 MG/0.4 ML SYRINGE SQ SCH (05:32)
[2018-06-12] MEDS: Insulin LISPRO 300 UNITS/3 ML VIAL SQ SCH ×3 (08:40→16:50)
[2018-06-12] MEDS: Insulin DETEMIR 100 UNIT/ML X5UNITS SQ SCH ×2 (08:41→21:52)
[2018-06-12] MEDS: Gabapentin 100 MG CAPSULE PO SCH (08:43)
[2018-06-12] MEDS: Metoprolol 100 MG TABLET PO SCH (08:43)
[2018-06-12] MEDS: Meropenem 1,000 MG in 0.9 % Sodium Chloride Mini Bag 100 ML IVPB SCH (08:44)
--- NOTE | 2018-06-12 08:56 | Internal Med Progress Note ---
Hospitalist Progress Note - Encounter Date of Encounter: 06/12/18 Time of Encounter: 08:55 - Subjective Interval History: Patient had no acute events overnight. He states that he feels better today. He denies any pain or restlessness at this time. He is looking forward to surgery later today. He denies fever, chills, chest pain, SOB, nausea, vomiting , or abdominal pain. He has no other complaints at this time. - Exam Vitals: Temp Pulse Resp BP Pulse Ox 98.4 F 61 16 178/101 96 06/12/18 06:34 06/12/18 06:34 06/12/18 06:34 06/12/18 06:34 06/12/18 06:34 Exam: Gen - Awake, alert, no acute distress HEENT - NCAT, PERRLA, EOMI, hearing grossly intact, oropharynx benign CV - RRR, normal S1 and S2, no M/R/G, trace L > R BLE edema Resp - Normal WOB, CTAB, no W/R/R GI - Soft, NT/ND, no masses, normal bowel sounds, no HSP Skin - Warm, dry, mild erythema/edema of left dorsal foot with induration and without TTP, no other rashes/lesions/ulcers Psych - Normal mood and affect, no depression or anxiety - Assessment and Plan (1) Foot osteomyelitis, left Current Visit: Yes Status: Acute Assessment and Plan: Admit inpatient with telemetry. Podiatry has been consulted by ED; will await further recommendations. NPO after midnight in case needs surgery. Obtain MRI left foot in AM. Continue IV meropenem and IV vancomycin started in ED for now , given his multiple antibiotic allergies. Will likely need prolonged IV antibiotic course if confirmed osteomyelitis. Will consult SW and ID to help with antibiotic selection and discharge planning. IVF as per below. Will monitor vitals closely. Tylenol PRN mild pain/fever. [place] PRN moderate pain. Oxycodone PRN severe pain. 06/10 - Podiatry and ID consulted; appreciate input. MRI confirms osteomyelitis and fractures. Continue IV meropenem and IV vancomycin; will await further antibiotic recommendations from ID. Continue IVF as per below. Monitor vitals closely. Continue pain control. Will await further recommendations from podiatry. 06/11 - Podiatry and ID consulted; appreciate input. MRI confirms osteomyelitis and fractures. LLE Venous Duplex WNL. Continue IV meropenem and IV vancomycin ; will await further antibiotic recommendations from ID. Continue IVF as per below. Monitor vitals closely. Continue pain control; added norco 10 for severe pain and IV fentanyl for breatkthrough pain today. Will await further recommendations from podiatry. 06/12 - Podiatry and ID consulted; appreciate input. MRI confirms osteomyelitis and fractures. LLE Venous Duplex WNL. Continue IV meropenem and IV vancomycin ; will await further antibiotic recommendations from ID. Monitor vitals closely. Continue pain control. Podiatry plans for surgery today. (2) Foot fracture, left Current Visit: Yes Status: Chronic Assessment and Plan: Podiatry consulted; appreciate input. This is likely subacute from injury 6 weeks ago. Was previously pinned. Pain control as per above. Will await further recommendations from podiatry. 06/10 - Podiatry consulted; appreciate input. Pain control as per above. Will await further recommendations from podiatry. 06/11 - Podiatry consulted; appreciate input. Pain control as per above. Will await further recommendations from podiatry. Advised to keep weight off left foot. 06/12 - Podiatry consulted; appreciate input. Pain control as per above. Plan for surgery today. Advised to keep weight off left foot. (3) HTN (hypertension) Current Visit: Yes Status: Chronic Assessment and Plan: Continue home medications. He states that metoprolol is also for arrhythmia, but not sure what kind. 06/10 - Continue home medications. 06/11 - Continue home medications. 06/12 - Continue home medications. (4) HLD (hyperlipidemia) Current Visit: Yes Status: Chronic Assessment and Plan: Continue home medications. 06/10 - Continue home medications. 06/11 - Continue home medications. 06/12 - Continue home medications. (5) Type 2 diabetes mellitus with peripheral neuropathy Current Visit: Yes Status: Chronic Assessment and Plan: Currently hyperglycemic. Start accuchecks and high dose SSI QID AC/HS. Continue home insulin regimen. Hold home metformin. 06/10 - Continue accuchecks and high dose SSI QID AC/HS. Add levemir 10 units SQ daily. Hold home metformin. 06/11 - Hyperglycemia. Continue accuchecks and high dose SSI QID AC/HS. Increase levemir to 15 units BIDWM. Hold home metformin. 06/12 - Hyperglycemia improved this AM. Continue accuchecks and high dose SSI QID AC/HS. Continue levemir 15 units BIDWM. Hold home metformin. (6) Acute kidney injury Current Visit: Yes Status: Acute Assessment and Plan: Continue IV NS at 125 ml/hr. Recheck BMP in AM. 06/10- Creatinine improving. Continue IVF. Recheck BMP in AM. 06/11 - Creatinine continues to improve. IVF discontinued yesterday per patient request. Encourage PO hydration. Recheck BMP in AM. 06/12 - Creatinine continues to improve. Encourage PO hydration. Recheck BMP in AM. (7) Leg edema, left Current Visit: Yes Status: Acute Assessment and Plan: Left calf swollen for some time now. He states that he was supposed to be getting imaging as outpatient to rule out DVT. Will order LLE U/S to rule out DVT. 06/10 - LLE U/S ruled out DVT. Edema may be related to left foot infection. Treating left foot osteomyelitis as per above. 06/11 - LLE Venous Duplex WNL. Treating left foot osteomyelitis as per above. 06/12 - Treating left foot osteomyelitis as per above. (8) Anxiety Current Visit: Yes Status: Acute Assessment and Plan: Start hydroxyzine 50 mg PO Q6H PRN anxiety. 06/12 - Continue hydroxyzine PRN. (9) DVT prophylaxis Current Visit: Yes Status: Acute Assessment and Plan: Start lovenox 40 mg SQ QD. 06/10 - Continue SQ lovenox. 06/11 - Continue SQ lovenox. 06/12 - Continue SQ lovenox. - Time Spent with Patient Total time spent is greater than 50% in coordination of care (as documented) at patient's floor/unit and/or counseling patient: less than 15 minutes Plan of Care Discussed with: patient (Nurse) Internal Medicine: Result - Labs CBC & Chem 7: 06/12/18 01:07 06/12/18 01:07 Labs: Short CBC 06/12/18 Range/Units 01:07 WBC 16.0 H (4.3-11.1) K/mcL Hgb 11.5 L (12.9-16.9) g/dL Hct 34.3 L (37.5-50.1) % Plt Count 246 (140-400) K/mcL Neutrophils # 4.4 (1.6-8.9) K/mcL [facility] 06/12/18 01:07 Sodium 139 Potassium 3.8 Chloride 107 Carbon Dioxide 26 BUN 20 Creatinine 1.30 Glucose 169 H Calcium 8.9 - VTE Documentation of Mechanical Device: Intermittent pneumatic compression device Consult Discharge Plan - Plan Referrals: Skye Callahan, ADRIANO [Primary Care Provider] - (1) Foot osteomyelitis, left Qualifiers: Osteomyelitis type: unspecified type Qualified Code(s): M86.9 - Osteomyelitis , unspecified (2) Foot fracture, left Qualifiers: Encounter type: sequela Fracture type: closed Qualified Code(s): S92.902S - Unspecified fracture of left foot, sequela (3) HTN (hypertension) Qualifiers: Hypertension type: essential hypertension Qualified Code(s): I10 - Essential (primary) hypertension (4) HLD (hyperlipidemia) Qualifiers: Hyperlipidemia type: mixed hyperlipidemia Qualified Code(s): E78.2 - Mixed hyperlipidemia
--- NOTE | 2018-06-12 10:39 | Infectious Disease Consult ---
Date of Encounter: 06/12/18 Time of Encounter: 10:34 Assessment and Plan (1) Leukocytosis Status: Acute Assessment and plan: WBC elevated at 18 on admission. Likely secondary to osteomyelitis. Improved. Continue to trend. Qualifiers: Leukocytosis type: unspecified Qualified Code(s): D72.829 - Elevated white blood cell count, unspecified (2) Foot osteomyelitis, left Status: Acute Assessment and plan: Location: Left first metatarsal, left second metatarsal, and second proximal phalanx. Causative organism: Unclear. No cultures obtained and obtained as there is not an open lesion. Etiology unclear, but likely secondary to recent surgical procedure. The patient denies any known trauma. X-ray of the left foot showed findings consistent with osteomyelitis of the second metatarsal and second proximal phalanx. MRI of the left foot showed findings consistent with osteomyelitis of the second metatarsal head and proximal second phalanx as well as the first metatarsal. ESR elevated at 62 with a CRP of 28. Infrastructure Consultant and consulted. Planning to take the patient to the operating room later today. Await intraoperative findings. Please obtain cultures. Continue vancomycin IV. Pharmacy to dose. Goal trough approximately 15. Discontinue meropenem. Start cefepime 2 g IV every 12 hours. Start Flagyl 500 mg IV 3 times a day. Duration of treatment depends on the clinical picture, but likely a total 6 weeks of IV antibiotics will be required. Monitor renal function and for drug toxicity and dose adjust antibiotics. child protective services specialist to assist with discharge planning. The patient states that he does not have electricity or running water at home, therefore, he will likely need to be placed in a rehabilitation facility to complete his IV antibiotics. Further antibiotic and OPAT recommendations to follow from the ID team pending additional cultures and clinical outcomes. Qualifiers: Osteomyelitis type: unspecified type Qualified Code(s): M86.9 - Osteomyelitis, unspecified (3) Abscess of left foot Status: Acute Assessment and plan: Location: Left foot first interdigital space. Causative organism: Unclear. Continue antibiotics as above. (4) Acute kidney injury Status: Acute Assessment and plan: Likely secondary to poor by mouth intake due to infectious process. Resolved. Continue to trend. Dose adjust antibiotics if needed. Avoid nephrotoxins as able. (5) Foot fracture, left Status: Chronic Assessment and plan: Likely secondary to recent trauma. Further recommendations per the podiatry team. Qualifiers: Encounter type: sequela Fracture type: closed Qualified Code(s): S92.902S - Unspecified fracture of left foot, sequela (6) Leg edema, left Status: Acute Assessment and plan: Likely secondary to infection. DVT study negative. (7) HLD (hyperlipidemia) Status: Chronic Qualifiers: Hyperlipidemia type: mixed hyperlipidemia Qualified Code(s): E78.2 - Mixed hyperlipidemia (8) Type 2 diabetes mellitus with peripheral neuropathy Status: Chronic Assessment and plan: Uncontrolled. Hemoglobin A1c is 10.2%. Recommend aggressive glucose monitoring and control to promote wound healing and prevent recurrent infection. Management per the primary team. (9) HTN (hypertension) Status: Chronic Qualifiers: Hypertension type: essential hypertension Qualified Code(s): I10 - Essential (primary) hypertension Infectious Disease HPI - Data of Consult Patient: new to practice Consult date: 06/12/18 Requesting Physician: Bc Whyte MD Primary Care Provider: Skye Callahan CNP - Consult Narrative Reason for consult: Osteomyelitis left foot History of present illness: Mr. Campos is a 63 year old male with a past medical history of CVA, type 2 diabetes for the last 10 years currently on insulin and oral anti-hyperglycemics , hyperlipidemia, NV, and anxiety. The patient was admitted to the hospital June 09 for osteoarthritis of the left foot. We are consulted June 12 for further recommendations for osteomyelitis of the left foot. Briefly, the patient's a 63-year-old male with past medical history as stated above. The patient states that back in March he had a stroke and fell and fractured his left second toe. At that time, he was treated at [facility] up going to the operating room and had 2 pins placed in the affected toe. He states that while hospitalized, one was pulled out on accident and the other was removed about 2 weeks ago by his medicine assistant. He states about 3 or 4 days later he noticed that the toe is red and hot and swollen. His symptoms progressed for about 4 days and he saw his PCP who did an x-ray that showed findings consistent with cellulitis and possible osteo-myelitis of the second toe and metatarsal. He was advised to come to the ER for evaluation. Upon arrival, the patient was afebrile hemodynamically stable. He did have a white blood cell count of 18,000 with predominantly lymphocytes. He also had an acute kidney injury with serum creatinine of 1.67. His lactic acid was normal. ESR was elevated at 62 with a CRP of 28. He had a left foot x-ray that showed os myelitis at this distal second metatarsal and second proximal phalanx as well as a nondisplaced fracture of the third middle phalanx. He was started empirically on IV Vancomycin and Meropenem and admitted to the hospital for further evaluation. Since admission, the patient has undergone an MRI of the left foot that showed septic arthritis of the second MTP joint as well as a remote fracture with evidence of hardware removal of the second metatarsal head and proximal second phalanx as well as osteoarthritis of the same area. It also showed septic arthritis of the first MTP joint with findings consistent with osteomyelitis of the first metatarsal and a fluid collection in the first interdigital space. Podiatry has been consult and recommends taking the patient to the operating room for an I&D later today. Since admission, his white blood cell count started trending down. His acute kidney injury has resolved. ABIs were completed this morning and are pending. Currently, he is on IV vancomycin and IV meropenem. We have been asked to evaluate and make further recommendations. During my exam today, the patient endorses a history as stated above. He denies any known trauma except for the surgical intervention and pen removal as described above. He reports subjective fevers and chills, but denies any rigors. He reports some intermittent headaches, but no neck pain or stiffness. He denies any chest pain, shortness of breath, or cough. He denies any upper respiratory tract infection symptoms. He denies any nausea or vomiting or diarrhea. He denies abdominal pain, urinary complaints, or appetite changes. He reports some minor arthritis pain, but otherwise denies pain except in the left foot. He states the left foot became red and hot and swollen and very tender about 4 days prior to him coming to the hospital. He denies stepping on anything that he knows of and states he has not had an open sore other than a callus that the skin peeled off. He denies any oral thrush or new skin lesions. The patient lives at home alone. He does have a dog, but denies any bites or scratches. He states that he does not have any running water or electricity at his house because he wants it that way. He is retired. He denies any recent travel out of [facility]. He denies any tobacco, alcohol, or illicit drug use. He has a documented allergy to penicillin and states that it turns his skin multiple colors, including turning his lips black. He states last time he took it was about 30 years ago. CC: Bc Whyte MD Past Med Surg Social Fam HX - Past Medical History Attestation: Yes The following information was validated with the patient. Source: patient, old records reviewed, nursing notes reviewed Medical history: CVA, diabetes, hyperlipidemia, myocardial infarction Psychiatric history: anxiety - Past Surgical History Surgical History: orthopedic, other (Bilateral rotator cuff surgeries, bilateral bicep rupture ), tonsilectomy Additional surgical history: back surgery - Social History Smoking Status: Never smoker Smokeless Tobacco Status: No Alcohol use: none Drug use: none Occupational status: retired Current living situation: Home - Independent Activity Level: Independent ambulation Recent Out of Country Travel Within the Last 8 Weeks: No Exposure or Possible Exposure to Illness During Travel: No - Family History Father Living Status: Hx Family Cardiac Disorders: Yes Infectious Disease-CN:Meds Atorvastatin Calcium [Lipitor] 20 mg PO HS 06/09/18 [History] Doxycycline Hyclate [Doxycycline Hyclate] 100 mg PO BID 06/09/18 [History] Gabapentin [Neurontin] 100 mg PO BID 06/09/18 [History] Insulin Lispro Protamin/Lispro [Humalog Mix 50-50 Kwikpen] 20 units SQ BID 06/09 [History] Metformin HCl [Metformin HCl] 1,000 mg PO BID 06/09/18 [History] Metoprolol Tartrate [Metoprolol Tartrate] 100 mg PO DAILY 06/09/18 [History] 3 Allergy/AdvReac Type Severity Reaction Status Date / Time Penicillins [PCN] Allergy Anaphylaxis Verified 06/09/18 18:25 Tetanus Vaccines and Toxoid Allergy Anaphylaxis Verified 06/09/18 18:25 All systems: reviewed and no additional remarkable complaints except as stated Exam - Constitutional Vitals: Temp Pulse Resp BP Pulse Ox 98.4 F 61 16 178/101 96 06/12/18 06:34 06/12/18 06:34 06/12/18 06:34 06/12/18 06:34 06/12/18 06:34 General appearance: cooperative, no acute distress, obese - Head Head exam: Present: atraumatic, normal inspection, normocephalic - Eye Eye exam: Present: EOMI, normal appearance, PERRL Pupils: Present: normal accommodation - ENT ENT exam: Present: mucous membranes moist - Neck Neck exam: Present: normal inspection - Respiratory Respiratory exam: Present: CTAB. Absent: rales, respiratory distress, rhonchi, wheezes - Cardiovascular Cardiovascular exam: Present: RRR, +S1, +S2 - GI/Abdominal GI/Abdominal exam: Present: distended (obese), normal bowel sounds, soft. Absent: tenderness - Extremities Exam Extremities exam: Present: pedal edema (1+ LLE), tenderness (left foot). Absent : joint swelling - Expanded Lower Extremity Exam 1 - Erythema, edema, tenderness noted to the dorsal aspect of the left forefoot and 2nd and third toes. No open lesions noted. - Neurological Exam Neurological exam: Present: alert, oriented X3, no focal deficits - Psychiatric Psychiatric exam: Present: normal affect, normal mood - Skin Skin exam: Present: dry, intact, normal color, warm Infectious Disease CN: Results - Labs CBC & Chem 7: 06/12/18 01:07 06/12/18 01:07 - VTE Documentation of Mechanical Device: Intermittent pneumatic compression device Consult Discharge Plan - Plan Referrals: Skye Callahan CNP [Primary Care Provider] - - Attending Attestation I examined this patient and my medical decision-making was reviewed with the Marsha Eaton CNP. I agree with the documented findings, disposition and treatment plan as described except to the extent set forth below. He will. Patient is a 63-year-old gentleman with past medical history mentioned below presented with left foot osteomyelitis noted on the MRI. MRI findings consistent with osteomyelitis of the second metatarsal head and proximal second phalanx as well as the first metatarsal. Inflammatory markers were elevated at ESR of 62 and a CRP of 28. Patient had history of foot surgery done at [place]. Pins were removed. About a week or 2 ago the swelling started. No causative organism was identified. Patient had leukocytosis but no obvious SIRS criteria. And he is on day 4. Assessment and plan: Foot osteomyelitis on the left Leukocytosis Abscess of the left foot Acute kidney injury Left foot fracture Morbid obesity Diabetes mellitus type 2 poorly controlled with a hemoglobin A1c of 10.2% Recommendations: Ideally we would have liked not to have started antibiotics until Intra-Op cultures were obtained. Continue vancomycin be very vigilant of the kidney function DC meropenem Start cefepime and Flagyl empirically Await intraoperative cultures Duration of treatment likely 6 weeks Patient will need a PICC line placement prior to discharge Monitor labs and for drug toxicity and dose adjust antibiotics based on the creatinine clearance.
--- NOTE | 2018-06-12 17:09 | Anesthesia Evaluation PreOp ---
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: CVA ( 2010 & recently CVA approx 6 weeks ago), Other (Anxiety/ Depression) Other Medical History: Diabetes Type II Anesthesia History: No Prior Anesthetic Complications, Past Anesthesia (RCR x 3 , Ruptured biceps repair x 2, T&A, Lumbar disc x 3, Testicular surgery) Alcohol Use: none Drug use: none Medications and Allergies Atorvastatin Calcium [Lipitor] 20 mg PO HS 06/09/18 [History] Doxycycline Hyclate [Doxycycline Hyclate] 100 mg PO BID 06/09/18 [History] Gabapentin [Neurontin] 100 mg PO BID 06/09/18 [History] Insulin Lispro Protamin/Lispro [Humalog Mix 50-50 Kwikpen] 20 units SQ BID 06/09 [History] Metformin HCl [Metformin HCl] 1,000 mg PO BID 06/09/18 [History] Metoprolol Tartrate [Metoprolol Tartrate] 100 mg PO DAILY 06/09/18 [History] 3 Allergy/AdvReac Type Severity Reaction Status Date / Time Penicillins [PCN] Allergy Anaphylaxis Verified 06/09/18 18:25 Tetanus Vaccines and Toxoid Allergy Anaphylaxis Verified 06/09/18 18:25 - Meds/Allergy Pre-op Review Medications Reviewed: Yes Allergies Reviewed: Yes Beta Blockers on Current Med List: Yes (Metoprolol) If Beta Blockers taken, Date/Time (Last Dose taken): 06/12/2018 @ 0843 Anesthesia Results - Labs 06/12/18 01:07 06/12/18 01:07 Laboratory Results WBC 16.0 K/mcL (4.3-11.1) H 06/12/18 01:07 RBC 3.92 M/mcL (4.19-5.50) L 06/12/18 01:07 Hgb 11.5 g/dL (12.9-16.9) L 06/12/18 01:07 Hct 34.3 % (37.5-50.1) L 06/12/18 01:07 MCV 87.5 fL (83.0-100.0) 06/12/18 01:07 MCH 29.3 pg (28.0-33.3) 06/12/18 01:07 MCHC 33.5 g/dL (31.6-35.5) 06/12/18 01:07 RDW 14.0 % (11.5-14.5) 06/12/18 01:07 Plt Count 246 K/mcL (140-400) 06/12/18 01:07 MPV 9.5 fL (9.4-12.4) 06/12/18 01:07 Immature Gran % 0.3 % (0-4) 06/12/18 01:07 Seg Neutrophils % 27.7 % 06/12/18 01:07 Lymphocytes % 64.8 % 06/12/18 01:07 Monocytes % 4.6 % 06/12/18 01:07 Eosinophils % 2.4 % 06/12/18 01:07 Basophils % 0.2 % 06/12/18 01:07 Neutrophils # 4.4 K/mcL (1.6-8.9) 06/12/18 01:07 Lymphocytes # 10.4 K/mcL (0.6-4.6) H 06/12/18 01:07 Monocytes # 0.7 K/mcL (0.0-1.3) 06/12/18 01:07 Eosinophils # 0.4 K/mcL (0.0-0.6) 06/12/18 01:07 Basophils # 0.0 K/mcL (0.0-0.2) 06/12/18 01:07 Reactive Lymphocytes Present (Not Present) A 06/12/18 01:07 Toxic Granulation Present (Not Present) A 06/12/18 01:07 Platelet Estimate Normal (Normal) 06/12/18 01:07 ESR 62 mm/hr (0-10) H 06/09/18 16:48 Sodium 139 mEq/L (136-145) 06/12/18 01:07 Potassium 3.8 mEq/L (3.5-5.1) 06/12/18 01:07 Chloride 107 mEq/L (98-107) 06/12/18 01:07 Carbon Dioxide 26 mEq/L (23-29) 06/12/18 01:07 BUN 20 mg/dL (8-23) 06/12/18 01:07 Creatinine 1.30 mg/dL (0.70-1.30) 06/12/18 01:07 Est GFR ( Amer) > 60 (> 60) 06/12/18 01:07 Est GFR (Non-Af Amer) 56 (> 60) L 06/12/18 01:07 BUN/Creatinine Ratio 15 (6-26) 06/12/18 01:07 Glucose 169 mg/dL (70-105) H 06/12/18 01:07 POC Glucose 230 mg/dL (70-99) H 06/12/18 08:39 Est Mean Plasma Glucose 246 mg/dl 06/09/18 16:48 Hemoglobin A1c 10.2 % (-5.6) H 06/09/18 16:48 Calculated Osmolality 295 (280-300) 06/12/18 01:07 Lactic Acid 1.2 mmol/L (0.5-2.2) 06/09/18 16:48 Calcium 8.9 mg/dL (8.6-10.3) 06/12/18 01:07 Magnesium 1.6 mg/dL (1.6-2.6) 06/10/18 00:47 C-Reactive Protein 28 mg/L (Less than 10) H 06/09/18 16:48 Vancomycin Trough 12 mcg/mL (5-10) H 06/11/18 06:45 Impressions Foot X-Ray 06/09/18 16:35 IMPRESSION: 1. Destructive lesions in the distal second metatarsal and the second proximal phalanx most suggestive of osteomyelitis with lateral subluxation of the second toe. 2. Nondisplaced fracture of the third middle phalanx. D/ / 06/09/2018 17:16:09 Kashif Barragan MD / [facility] Interpreting Provider: Kashif Barragan MD Foot MRI 06/09/18 18:21 IMPRESSION: 1. Septic arthritis of the 2nd MTP joint with remote fracture deformities of the 2nd metatarsal head and proximal 2nd phalanx with evidence for prior hardware placement and removal. Marrow signal changes throughout the length of the 2nd metatarsal which are most pronounced at the 2nd metatarsal head and involving the 2nd proximal phalanx are compatible with osteomyelitis. 2. Septic arthritis of the 1st MTP joint with marrow signal changes of the 1st metatarsal head and distal diaphysis compatible with osteomyelitis. The complex 1st MTP joint effusion is seen to communicate with the adjacent complex fluid collection/phlegmon in the 1st interspace which is continuous with the collection at the 2nd MTP joint. 3. Extensive subcutaneous edema most pronounced within the dorsal soft tissues and extending into the toes. Correlate for cellulitis. 4. Remote fractures of the 3rd metatarsal head and 3rd middle phalanx. D/ / Grant Damon MD / Grant Damon MD Interpreting Provider: Grant Damon MD Anesthesia Exam Vital Signs Temp Pulse Resp BP Pulse Ox 06/12/18 15:20 97.7 F 54 16 155/83 96 06/12/18 11:23 98.7 F 49 16 126/69 96 06/12/18 06:34 98.4 F 61 16 178/101 96 06/12/18 04:02 97.9 F 64 18 145/75 97 06/11/18 22:55 97.7 F 50 16 130/76 98 06/11/18 18:55 99.0 F 59 18 135/77 97 Intake and Output 06/12/18 06/12/18 06/12/18 07:59 15:59 23:59 Other: Meal Breakfast Percent of Meal Consumed 100% # Voids 1 Blood Glucose* 255 133 Height: 5'6" Weight: 265# BMI = 43 NPO (# of Hours): 0900 - HEENT Pupil (Motor): Pupils equal, EOMI Mallampati: II Teeth: Normal Oral Opening: Greater than 3 - 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 DRILL OPERATOR LOC: Oriented RAISE DRILL OPERATOR Motor: Normal RUE, Normal LUE, Normal RLE, Normal LLE, Normal Face RAISE DRILL OPERATOR Sensory: Normal: RUE, LUE, RLE, LLE, Face - Cardiac Rhythm: Regular Murmur: None - Pulmonary Breath Sounds: bilateral Clear Respiratory Effort: Symmetrical Anesthesia Assess/Plan ASA Score: 3 (Uncontrolled DM, Recent CVA, Chol, Acute Kidney Injury) Modified Wadsworth Scale for Level of Consciousness: Cooperative, oriented, and tranquil Anesthetic Plan: General Monitoring Plan: Standard Monitors Recovery Plan: PACU Anes Supervising Prov Stmt: Pt seen/evaluated, R&B discussed, questions answered and consent obtained. - MD Brett
[2018-06-12] MEDS ORDERED: Vancomycin 1,000 MG VIAL ONE (17:57)
[2018-06-12] MEDS ORDERED: Cefepime HCl 2,000 MG in Water for inj. (sterile) 20 ML 20 ML IVPB SCH (18:00)
[2018-06-12] MEDS ORDERED: *HR* Midazolam HCl 2 MG/2 ML VIAL ONE (18:34)
[2018-06-12] MEDS ORDERED: *HR* FentaNYL (PF) 100 MCG/2 ML VIAL ONE ×2 (18:34→20:22)
[2018-06-12] MEDS ORDERED: *HR* Propofol 200 MG/20 ML VIAL IVP ONE (18:35)
[2018-06-12] MEDS ORDERED: Dexamethasone 4 MG/ML VIAL ONE (18:36)
[2018-06-12] MEDS ORDERED: Lidocaine -MPF 2% 2 ML VIAL ONE (18:36)
[2018-06-12] MEDS ORDERED: Ondansetron 4 MG/2 ML VIAL ONE (18:36)
[2018-06-12] MEDS ORDERED: *HR* Succinylcholine 200 MG/10 ML VIAL IVP ONE (18:36)
--- NOTE | 2018-06-12 20:14 | Operative Note ---
Date of procedure: 06/12/18 Pre-op diagnosis: left foot abscess, left foot osteomyelitis Post-op diagnosis: same Procedure: incision and drainage left foot partial 2nd ray amputation (metatarsal and toe) bone biopsy right first metatarsal Implants: none Complications: none Anesthesia: GETA Local Anesthetics: 1% Lidocaine HCL SubQ (cc) Surgeon: Tam Ramos Was there an corporate legal assistant present: No Estimated blood loss (cc): 200 Specimen: pathology-L 2nd toe(met+phal), 1st met bone, micro-1st met, 2nd met, tissue Condition: stable Disposition: PACU Procedure in Detail: Indications: 63-year-old diabetic male with A1c over 10% and surgery approximately 6 weeks ago and erythema which started on his foot in early April and gradually worsened. Patient came to the emergency room here with an infection in the left foot. Had an increased white blood cell count an MRI showing abscess and osteomyelitis. There were destructive changes of the second metatarsophalangeal joint on x-ray. Nature of his condition and above procedures discussed at length preoperatively. Risks versus benefits potential complications and consequences of surgery and his diabetic foot infection were discussed at length. No guarantees were made as to the outcome or that he will be able to salvage his left foot. He understand that he was having an amputation of the second toe and possibly more of his foot. All of his questions have been answered and informed consent was signed. Patient was taken and operating room placed on operating room table in the supine position 1 % lidocaine plain was injected into the patient's left foot. An ankle tourniquet was applied but not inflated during the entire procedure. The left foot was scrubbed prepped and draped in the usual sterile fashion the following procedures began. Incision and drainage left foot. Attention was directed to the dorsal aspect of the left foot where an incision was made over the second metatarsal and interspace, purulent drainage was able to be expressed. Dissection was carried out down to the level of the bone and the second metatarsophalangeal joint bone with the 2nd metatarsal head destroyed both the phalanx bone at the base of the proximal phalanx and the head of the second metatarsal were noted to be very soft. The second MTP joint had devitalized tissue surrounding it and this tissue was excised. The lateral first MTP joint capsule was incised exposing the first metatarsophalangeal joint. There was no purulent drainage which came out of the first metatarsophalangeal joint. The infection did not appear to track proximally along the tendons. With the soft bone findings at the second MTP joint the next procedure was performed. Tissue from the first interspace was obtained and sent to microbiology. Partial second ray amputation left foot. The incision was extended further proximally and soft tissue was reflected from the second metatarsal. The sagittal saw was used to resect the second metatarsal bone midshaft. This bone was sent to microbiology. The second metatarsophalangeal joint which included the metatarsal head and the toe was then excised and the toe amputated and these were sent to pathology. Bone biopsy left first metatarsal. A Jamshidi needle was utilized to obtain bone from the head of the metatarsal through a separate incision. The bone was noted to be of hard quality and not soft. Bone was obtained and sent to microbiology and pathology. The pulse lavage was used to irrigate the surgical site with vancomycin in the irrigation. Upon reinspection no further devitalized tissue was felt to be present. There was bleeding present at the surgical site and Vicryl was used to tie off traversing vessels in the first interspace. Gelfoam soaked in topical thrombin with miguelina were also applied. Pressure was held for a few minutes and no active bleeding was present. Postoperative bandaging included 4 x 4 gauze, ABD pad,Kerlix and SVETLANA wrap. Patient was transported to the recovery room with vital signs stable and vascular status intact to the remaining digits of the left foot. Patient had adequate hemostasis. Patient will return to the floor where he will continue IV antibiotics.
--- NOTE | 2018-06-12 20:51 | Anesthesia Evaluation Post Op ---
Date of Encounter: 06/12/18 Time of Encounter: 20:50 - Vital Signs Vital Signs: Vital Signs/O2 Sat, Most Current Temp Pulse Resp BP Pulse Ox 98.1 F 73 18 160/80 98 06/12/18 20:47 06/12/18 20:47 06/12/18 20:47 06/12/18 20:47 06/12/18 20:47 - Lungs Lungs: Clear Ascult./Percussion - Airway Airway: Non-obstructed - Cardiovascular Regular Rate - Mental Status Mental Status: Alert & Oriented, Answers Appropriately - Pain Pain Scale: 0 Pain Scale used: Numeric (1 - 10) - Nausea Vomiting Nausea Vomiting: Not Present - Hydration Hydration: Ice chips, Has not voided - Discharge PostOp Status: Transfer Patient to floor
[2018-06-12] MEDS ORDERED: metroNIDAZOLE 500 MG TABLET PO SCH (21:00)
[2018-06-12] MEDS ORDERED: Dextrose Gel 15 GM/37.5 ML TUBE PO PRN ×2 (21:04)
[2018-06-12] MEDS ORDERED: Naloxone 0.4 MG/ML INJ IVP PRN (21:04)
[2018-06-12] MEDS ORDERED: *HR* Dextrose 50 % in Water (Syg) 50 ML SYRINGE IVP PRN (21:04)
[2018-06-12] MEDS ORDERED: D5% in Water 1,000 ML IVC PRN (21:04)
[2018-06-12] MEDS ORDERED: Acetaminophen 325 MG TABLET PO PRN (21:04)
[2018-06-12] MEDS ORDERED: Ondansetron 4 MG/2 ML VIAL IVP PRN (21:04)
[2018-06-12] MEDS: 0.9 % Sodium Chloride 1,000 ML IVC SCH (21:52)
[2018-06-12] MEDS: Cefepime HCl 2,000 MG in Water for inj. (sterile) 20 ML 20 ML IVPB SCH (21:52)
[2018-06-12] MEDS: metroNIDAZOLE 500 MG TABLET PO SCH (21:53)
[2018-06-12] MEDS: hydrOXYzine pamoate 25 MG CAPSULE PO PRN (22:38)
[2018-06-13] MEDS: *HR* HYDROcodone/Acet 5/325 mg TABLET PO PRN ×2 (01:23→20:16)
[2018-06-13 02:26] LABS: Basophils % 0.1 %; Eosinophils % 0.1 %; Hematocrit 33.6 % (37.5-50.1); Hemoglobin 11.5 g/dL (12.9-16.9); Immature Granulocytes % 0.4 % (0-4); Lymphocytes # 9.7 K/mcL (0.6-4.6); Lymphocytes % 49.7 %; Mean Corpuscular HGB Conc 34.2 g/dL (31.6-35.5); Mean Corpuscular Hemoglobin 29.4 pg (28.0-33.3); Mean Corpuscular Volume 85.9 fL (83.0-100.0); Mean Platelet Volume 9.5 fL (9.4-12.4); Monocytes # 0.3 K/mcL (0.0-1.3); Monocytes % 1.4 %; Neutrophils # 9.5 K/mcL (1.6-8.9); Platelet Count 249 K/mcL (140-400); Red Blood Count 3.91 M/mcL (4.19-5.50); Red Cell Distribution Width 13.8 % (11.5-14.5); Segmented Neutrophils % 48.3 %
[2018-06-13 02:44] LABS: BUN/Creatinine Ratio 17 (6-26); Blood Urea Nitrogen 20 mg/dL (8-23); Calcium 8.7 mg/dL (8.6-10.3); Carbon Dioxide 24 mEq/L (23-29); Chloride 102 mEq/L (98-107); Glucose 346 mg/dL (70-105); Osmolality,Calculated 296 (280-300); Potassium 4.3 mEq/L (3.5-5.1); Sodium 135 mEq/L (136-145); eGFR For Non-African Americans > 60 (> 60)
[2018-06-13 03:00] LABS: Platelet Estimate Normal (Normal); Reactive Lymphocytes Present (Not Present)
[2018-06-13] MEDS: *HR* FentaNYL (PF) 100 MCG/2 ML VIAL IVP PRN ×2 (03:20→13:43)
[2018-06-13] MEDS: *HR* Enoxaparin 40 MG/0.4 ML SYRINGE SQ SCH (05:43)
[2018-06-13] MEDS ORDERED: Insulin DETEMIR 100 UNIT/ML X5UNITS SQ SCH (09:00)
[2018-06-13] MEDS: *HR* HYDROcodone/Acet 10/325 mg TABLET PO PRN ×2 (09:18→16:19)
[2018-06-13] MEDS: metroNIDAZOLE 500 MG TABLET PO SCH ×3 (09:19→19:50)
[2018-06-13] MEDS: Metoprolol 100 MG TABLET PO SCH (09:19)
[2018-06-13] MEDS: Insulin LISPRO 300 UNITS/3 ML VIAL SQ SCH ×4 (09:19→17:31)
[2018-06-13] MEDS: Insulin DETEMIR 100 UNIT/ML X5UNITS SQ SCH ×3 (09:19→20:15)
[2018-06-13] MEDS: Gabapentin 100 MG CAPSULE PO SCH ×3 (09:19→19:50)
[2018-06-13] MEDS: Cefepime HCl 2,000 MG in Water for inj. (sterile) 20 ML 20 ML IVPB SCH (09:20)
--- NOTE | 2018-06-13 12:05 | Infectious Disease Progress No ---
Date of Encounter: 06/13/18 Time of Encounter: 12:03 - Assessment and Plan (1) Leukocytosis Current Visit: Yes Status: Acute WBC elevated at 18 on admission. Likely secondary to osteomyelitis. Worse this morning, but likely reactive from surgery yesterday. Continue to trend. Qualifiers: Leukocytosis type: unspecified Qualified Code(s): D72.829 - Elevated white blood cell count, unspecified (2) Foot osteomyelitis, left Current Visit: Yes Status: Acute Location: Left first metatarsal, left second metatarsal, and second proximal phalanx. Causative organism: Unclear. Intra-op cultures pending. Etiology unclear, but likely secondary to recent surgical procedure. The patient denies any known trauma. X-ray of the left foot showed findings consistent with osteomyelitis of the second metatarsal and second proximal phalanx. MRI of the left foot showed findings consistent with osteomyelitis of the second metatarsal head and proximal second phalanx as well as the first metatarsal. ESR elevated at 62 with a CRP of 28. ABIs showed non-compressible vessels of the right and mild disease on the left. TCPO2 monitoring showed findings consistent with healing bilaterally. Podiatry consulted. Status post I&D of the left foot, partial second ray amputation, and bone biopsy of the left first metatarsal. Operative note reviewed. Purulence noted Intra-Op. Cultures are pending. Pathology is pending. Wound care and activity restrictions per the podiatry team. Continue vancomycin IV. Pharmacy to dose. Goal trough approximately 15. Continue cefepime 2 g IV every 12 hours. Continue Flagyl 500 mg IV 3 times a day. Duration of treatment depends on the clinical picture, but likely a total 6 weeks of IV antibiotics will be required. Monitor renal function and for drug toxicity and dose adjust antibiotics. academic services coordinator to assist with discharge planning. The patient states that he does not have electricity or running water at home, therefore, he will likely need to be placed in a rehabilitation facility to complete his IV antibiotics. Further antibiotic and OPAT recommendations to follow from the ID team pending additional cultures and clinical outcomes. Qualifiers: Osteomyelitis type: unspecified type Qualified Code(s): M86.9 - Osteomyelitis, unspecified (3) Abscess of left foot Current Visit: Yes Status: Acute Location: Left foot first interdigital space. Causative organism: Unclear. Cultures are pending. Podiatry consult and following. Status post I&D 06/12/18. Continue antibiotics as above. (4) Acute kidney injury Current Visit: Yes Status: Resolved Likely secondary to poor by mouth intake due to infectious process. Resolved. Continue to trend. Dose adjust antibiotics if needed. Avoid nephrotoxins as able. (5) Foot fracture, left Current Visit: Yes Status: Chronic Likely secondary to recent trauma. Further recommendations per the podiatry team. Qualifiers: Encounter type: sequela Fracture type: closed Qualified Code(s): S92.902S - Unspecified fracture of left foot, sequela (6) Leg edema, left Current Visit: Yes Status: Acute Likely secondary to infection. DVT study negative. (7) HLD (hyperlipidemia) Current Visit: Yes Status: Chronic Qualifiers: Hyperlipidemia type: mixed hyperlipidemia Qualified Code(s): E78.2 - Mixed hyperlipidemia (8) Type 2 diabetes mellitus with peripheral neuropathy Current Visit: Yes Status: Chronic Uncontrolled. Hemoglobin A1c is 10.2%. Recommend aggressive glucose monitoring and control to promote wound healing and prevent recurrent infection. Management per the primary team. (9) HTN (hypertension) Current Visit: Yes Status: Chronic Qualifiers: Hypertension type: essential hypertension Qualified Code(s): I10 - Essential (primary) hypertension - Subjective Interval history: Patient seen and examined. No acute events noted overnight. Patient reports pain in the left foot. Denies fevers, chills, or rigors. Denies chest pain, shortness of breath, or cough. Denies nausea, vomiting, or diarrhea. Denies abdominal pain, urinary complaints, or appetite changes. Denies oral thrush or new skin lesions. Infect Dis PN-Objective Data - Labs CBC & Chem 7: 06/14/18 04:23 06/14/18 04:23 Labs: Laboratory Results - last 24 hr 06/12/18 06/12/18 06/12/18 11:28 16:26 21:15 WBC RBC Hgb Hct MCV MCH MCHC RDW Plt Count MPV Immature Gran % Seg Neutrophils % Lymphocytes % Monocytes % Eosinophils % Basophils % Neutrophils # Lymphocytes # Monocytes # Eosinophils # Basophils # Reactive Lymphocytes Platelet Estimate Sodium Potassium Chloride Carbon Dioxide BUN Creatinine Est GFR ( Amer) Est GFR (Non-Af Amer) BUN/Creatinine Ratio Glucose POC Glucose 255 H 133 H 166 H Calculated Osmolality Calcium Vancomycin Trough 06/13/18 06/13/18 06/13/18 02:10 02:10 07:51 WBC 19.6 H RBC 3.91 L Hgb 11.5 L Hct 33.6 L MCV 85.9 MCH 29.4 MCHC 34.2 RDW 13.8 Plt Count 249 MPV 9.5 Immature Gran % 0.4 Seg Neutrophils % 48.3 Lymphocytes % 49.7 Monocytes % 1.4 Eosinophils % 0.1 Basophils % 0.1 Neutrophils # 9.5 H Lymphocytes # 9.7 H Monocytes # 0.3 Eosinophils # 0.0 Basophils # 0.0 Reactive Lymphocytes Present A Platelet Estimate Normal Sodium 135 L Potassium 4.3 Chloride 102 Carbon Dioxide 24 BUN 20 Creatinine 1.21 Est GFR ( Amer) > 60 Est GFR (Non-Af Amer) > 60 BUN/Creatinine Ratio 17 Glucose 346 H POC Glucose Calculated Osmolality 296 Calcium 8.7 Vancomycin Trough 10 Cultures: Cultures 06/12/18 19:20 Surgical Biopsy Culture - Preliminary Left Foot - Impressions Impressions Fluoroscopy 06/12/18 21:54 IMPRESSION: Intraprocedural fluoroscopic spot images as above. See separate procedure report for more information. D/ / Brien Monk MD / Brien Monk MD Interpreting Provider: Brien Monk MD Foot X-Ray 06/12/18 21:54 IMPRESSION: Intraprocedural fluoroscopic spot images as above. See separate procedure report for more information. D/ / Brien Monk MD / Brien Monk MD Interpreting Provider: Brien Monk MD Exam - Constitutional Vitals: Temp Pulse Resp BP Pulse Ox 97.5 F L 49 16 128/76 97 06/13/18 11:19 06/13/18 11:19 06/13/18 11:19 06/13/18 11:19 06/13/18 11:19 General appearance: cooperative, no acute distress, obese - Head Head exam: Present: atraumatic, normal inspection, normocephalic - Eye Eye exam: Present: EOMI, normal appearance, PERRL Pupils: Present: normal accommodation - ENT ENT exam: Present: mucous membranes moist - Neck Neck exam: Present: normal inspection - Respiratory Respiratory exam: Present: CTAB. Absent: rales, respiratory distress, rhonchi, wheezes - Cardiovascular Cardiovascular exam: Present: RRR, +S1, +S2 - GI/Abdominal GI/Abdominal exam: Present: distended (obese), normal bowel sounds, soft. Absent: tenderness - Extremities Exam Extremities exam: Present: normal inspection. Absent: joint swelling, pedal edema, tenderness Additional comments: Left foot dressing with small amount of old drainage noted. No surrounding erythema noted. - Neurological Exam Neurological exam: Present: alert, oriented X3, no focal deficits - Psychiatric Psychiatric exam: Present: normal affect, normal mood - Skin Skin exam: Present: dry, intact, normal color, warm - VTE Documentation of Mechanical Device: Intermittent pneumatic compression device Consult Discharge Plan - Plan Referrals: Skye Callahan CNP [Primary Care Provider] - - Attending Attestation I examined this patient and my medical decision-making was reviewed with the Resident Physician. I agree with the documented findings, disposition and treatment plan as described except to the extent set forth below.
[2018-06-13] MEDS: 0.9 % Sodium Chloride 1,000 ML IVC SCH (12:14)
--- NOTE | 2018-06-13 13:59 | Internal Med Progress Note ---
Hospitalist Progress Note - Encounter Date of Encounter: 06/13/18 Time of Encounter: 13:56 - Exam Vitals: Temp Pulse Resp BP Pulse Ox 97.5 F L 49 16 128/76 97 06/13/18 11:19 06/13/18 11:19 06/13/18 11:19 06/13/18 11:19 06/13/18 11:19 Exam: Gen - Awake, alert, no acute distress HEENT - NCAT, PERRLA, EOMI, hearing grossly intact, oropharynx benign CV - RRR, normal S1 and S2, no M/R/G, trace L > R BLE edema Resp - Normal WOB, CTAB, no W/R/R GI - Soft, NT/ND, no masses, normal bowel sounds, no HSP Skin - Warm, dry; left foot with bulky dressing in place; wound/incision not assessed Psych - Normal mood and affect, no depression or anxiety - Assessment and Plan (1) Foot osteomyelitis, left Current Visit: Yes Status: Acute Assessment and Plan: MRI confirmed for osteoarthritis and fracture. S/p I&D of left foot abscess and partial amputation 2nd digit. Continue IV cefepime and Flagyl; will likely need 6 weeks of IV ATB. Cultures pending. ID and Podiatry following. (2) Foot fracture, left Current Visit: Yes Status: Chronic Assessment and Plan: plan as noted above (3) HTN (hypertension) Current Visit: Yes Status: Chronic Assessment and Plan: per hx. BP variable but acceptable. Continue home BP medication. Monitor BP and titrate PRN (4) HLD (hyperlipidemia) Current Visit: Yes Status: Chronic Assessment and Plan: Continue home medications. (5) Type 2 diabetes mellitus with peripheral neuropathy Current Visit: Yes Status: Chronic Assessment and Plan: per hx. Uncontrolled; Hgb A1c 10.2%. Holding home oral hypoglycemics. Blood sugars uncontrolled and long-acting insulin added and increased. Cont high dose SSI. Blood sugars remain elevated on 06/13 exam. Increase long-acting insulin. (6) Acute kidney injury Current Visit: Yes Status: Acute Assessment and Plan: Cr peaked at 1.6; baseline normal. Suspect pre-renal. I will function normalized with IV fluids. Avoid nephrotoxic agents as possible. Intermittently monitor (7) Leg edema, left Current Visit: Yes Status: Acute Assessment and Plan: LLE U/S and DVT unremarkable. Suspect edema secondary to osteoarthritis. Continue treating also minus as noted above ruled out DVT. Edema may be related to left foot infection. Treating left foot osteomyelitis as per above. (8) Anxiety Current Visit: Yes Status: Acute Assessment and Plan: appears controlled. Cont PRN hydroxyzine (9) Leukocytosis Current Visit: Yes Status: Acute DVT Prophylaxis: lovenox - Time Spent with Patient Total time spent is greater than 50% in coordination of care (as documented) at patient's floor/unit and/or counseling patient: Internal Medicine: Result - Labs CBC & Chem 7: 06/13/18 02:10 06/13/18 02:10 Labs: Short CBC 06/13/18 Range/Units 02:10 WBC 19.6 H (4.3-11.1) K/mcL Hgb 11.5 L (12.9-16.9) g/dL Hct 33.6 L (37.5-50.1) % Plt Count 249 (140-400) K/mcL Neutrophils # 9.5 H (1.6-8.9) K/mcL BMP 06/13/18 02:10 Sodium 135 L Potassium 4.3 Chloride 102 Carbon Dioxide 24 BUN 20 Creatinine 1.21 Glucose 346 H Calcium 8.7 - Impressions Impressions Fluoroscopy 06/12/18 21:54 IMPRESSION: Intraprocedural fluoroscopic spot images as above. See separate procedure report for more information. D/ / Brien Monk MD / Brien Monk MD Interpreting Provider: Brien Monk MD Foot X-Ray 06/12/18 21:54 IMPRESSION: Intraprocedural fluoroscopic spot images as above. See separate procedure report for more information. D/ / Brien Monk MD / Brein Monk MD Interpreting Provider: Brien Monk MD - VTE Documentation of Mechanical Device: Intermittent pneumatic compression device Consult Discharge Plan - Plan Referrals: Skye Callahan, BEHAVIORAL PEDIATRICIAN [Primary Care Provider] - (1) Foot osteomyelitis, left Qualifiers: Osteomyelitis type: unspecified type Qualified Code(s): M86.9 - Osteomyelitis , unspecified (2) Foot fracture, left Qualifiers: Encounter type: sequela Fracture type: closed Qualified Code(s): S92.902S - Unspecified fracture of left foot, sequela (3) HTN (hypertension) Qualifiers: Hypertension type: essential hypertension Qualified Code(s): I10 - Essential (primary) hypertension (4) HLD (hyperlipidemia) Qualifiers: Hyperlipidemia type: mixed hyperlipidemia Qualified Code(s): E78.2 - Mixed hyperlipidemia (9) Leukocytosis Qualifiers: Leukocytosis type: unspecified Qualified Code(s): D72.829 - Elevated white blood cell count, unspecified
--- NOTE | 2018-06-13 15:15 | Podiatry Progress Note ---
Date of Encounter: 06/13/18 Time of Encounter: 12:50 - Assessment and Plan (1) Foot osteomyelitis, left Current Visit: Yes Status: Acute S/p incision and drainage left foot, partial 2nd ray amputation (metatarsal and toe), bone biopsy first metatarsal for a left foot abscess, left foot osteomyelitis by Dr. Ramos on 06/12/18. WBC: 19.6 Intraop cultures pending. Plan: Dr. Ramos to plan on taking patient back to OR tomorrow (06/14/18) for a washout and possible repair of wound, left foot. NPO after midnight. Antibiotics per ID. Dressing changed at bedside, saline flush packed with iodoform gauze, 4x4 dry sterile gauze, abd pad, kerlix and suhas wrap. Change BID, PRN if saturated. Will continue to follow patient closely. Qualifiers: Osteomyelitis type: unspecified type Qualified Code(s): M86.9 - Osteomyelitis, unspecified (2) Leg edema, left Current Visit: Yes Status: Acute (3) Leukocytosis Current Visit: Yes Status: Acute Qualifiers: Leukocytosis type: unspecified Qualified Code(s): D72.829 - Elevated white blood cell count, unspecified Subjective Interval history: Patient is s/p incision and drainage left foot, partial 2nd ray amputation ( metatarsal and toe), bone biopsy first metatarsal for a left foot abscess, left foot osteomyelitis. Patient is sitting up in chair eating lunch. Patient denies any pain, fever, chills. Patient states he thinks the swelling has gone down in the left leg. Objective - Vital Signs Vital Signs: Vital Signs Temp Pulse Resp BP Pulse Ox 06/13/18 11:19 97.5 F L 49 16 128/76 97 06/13/18 06:44 98.3 F 63 16 154/80 96 06/13/18 03:49 97.9 F 70 16 136/86 96 06/12/18 23:00 98 F 66 18 129/66 97 06/12/18 22:00 98.1 F 71 18 128/60 96 06/12/18 21:30 98.2 F 65 17 123/62 95 06/12/18 21:00 98.0 F 70 17 134/77 95 06/12/18 20:47 98.1 F 73 18 160/80 98 06/12/18 20:37 98.1 F 72 18 151/78 98 06/12/18 20:27 97.9 F 75 16 159/84 98 06/12/18 20:17 97.9 F 77 16 147/83 98 06/12/18 20:07 97.9 F 84 16 166/94 95 06/12/18 15:20 97.7 F 54 16 155/83 96 Intake and Output 06/12/18 06/13/18 06/13/18 23:59 07:59 15:59 Intake Total 20 20 250 / 250 520 / 520 Output Total 200 / 200 650 / 650 175 / 175 Balance -180 / -180 -400 / -400 345 / 345 Intake: IV Fluids Maxipime 2,000 MG In Water for inj. (sterile) 20 ML @ 300 mls/ hr IVPB Q12H [facility] Rx#:[id number] Oral 250 / 250 500 / 500 Output: Urine 0 / 0 650 / 650 175 / 175 Estimated Blood Loss 200 / 200 Other: Meal Lunch Percent of Meal Consumed 100% # Voids 1 Weight 120 kg Blood Glucose* 166 311 332 Patient Weight 06/13/18 23:59 Weight 120 kg - Exam Exam: General appearance: alert awake oriented X 3. Calm and pleasant, no acute distress.. Vascular: No evidence of cyanosis, pallor or rubor, Edema graded at 1+/4, Skin Temperature warm, No calf pain with manual compression. capillary refill time is immediate to digits. Neurologic: Sensation intact with light touch to foot. . Postop Exam: S/P Open surgical wound to the dorsum of the left foot extending from the 2nd interspace to the midfoot, moderate amount of blood observed to dressing. Small amount of blood oozing. Light periwound erythema, no streaking, no pus, no odor. Minimal edema. - Lab Result Diagrams: 06/13/18 02:10 06/13/18 02:10 Labs: Abnormal lab results WBC 19.6 K/mcL (4.3-11.1) H 06/13/18 02:10 RBC 3.91 M/mcL (4.19-5.50) L 06/13/18 02:10 Hgb 11.5 g/dL (12.9-16.9) L 06/13/18 02:10 Hct 33.6 % (37.5-50.1) L 06/13/18 02:10 Neutrophils # 9.5 K/mcL (1.6-8.9) H 06/13/18 02:10 Lymphocytes # 9.7 K/mcL (0.6-4.6) H 06/13/18 02:10 Reactive Lymphocytes Present (Not Present) A 06/13/18 02:10 Toxic Granulation Present (Not Present) A 06/12/18 01:07 ESR 62 mm/hr (0-10) H 06/09/18 16:48 Sodium 135 mEq/L (136-145) L 06/13/18 02:10 Glucose 346 mg/dL (70-105) H 06/13/18 02:10 POC Glucose 166 mg/dL (70-99) H 06/12/18 21:15 Hemoglobin A1c 10.2 % (-5.6) H 06/09/18 16:48 C-Reactive Protein 28 mg/L (Less than 10) H 06/09/18 16:48 Microbiology, Last 48 Hours 06/12/18 19:20 Surgical Biopsy Culture - Preliminary Left Foot - VTE Documentation of Mechanical Device: Intermittent pneumatic compression device Consult Discharge Plan - Plan Referrals: Skye Callahan, ADRIANO [Primary Care Provider] -
[2018-06-13] MEDS ORDERED: Insulin LISPRO 300 UNITS/3 ML VIAL SQ SCH (21:00)
[2018-06-14] MEDS: Cefepime HCl 2,000 MG in Water for inj. (sterile) 20 ML 20 ML IVPB SCH ×3 (00:34→21:47)
[2018-06-14 04:53] LABS: Hematocrit 34.5 % (37.5-50.1); Hemoglobin 11.6 g/dL (12.9-16.9); Mean Corpuscular HGB Conc 33.6 g/dL (31.6-35.5); Mean Corpuscular Hemoglobin 30.2 pg (28.0-33.3); Mean Corpuscular Volume 89.8 fL (83.0-100.0); Mean Platelet Volume 9.8 fL (9.4-12.4); Platelet Count 253 K/mcL (140-400); Red Blood Count 3.84 M/mcL (4.19-5.50); Red Cell Distribution Width 14.1 % (11.5-14.5)
[2018-06-14 05:14] LABS: BUN/Creatinine Ratio 23 (6-26); Blood Urea Nitrogen 26 mg/dL (8-23); Carbon Dioxide 25 mEq/L (23-29); Chloride 106 mEq/L (98-107); Glucose 178 mg/dL (70-105); Osmolality,Calculated 293 (280-300); Potassium 3.9 mEq/L (3.5-5.1); Sodium 137 mEq/L (136-145); eGFR For Non-African Americans > 60 (> 60)
[2018-06-14] MEDS: *HR* Enoxaparin 40 MG/0.4 ML SYRINGE SQ SCH (05:24)
[2018-06-14] MEDS: *HR* HYDROcodone/Acet 5/325 mg TABLET PO PRN (05:25)
[2018-06-14] MEDS ORDERED: Vancomycin 1,000 MG, Sodium Chloride IRRigation 1,000 ML IR ONE ×2 (06:00→14:54)
[2018-06-14] MEDS: hydrOXYzine pamoate 25 MG CAPSULE PO PRN (06:39)
[2018-06-14] MEDS: Insulin DETEMIR 100 UNIT/ML X5UNITS SQ SCH ×2 (08:40→21:32)
[2018-06-14] MEDS: Insulin LISPRO 300 UNITS/3 ML VIAL SQ SCH ×4 (08:40→21:35)
[2018-06-14] MEDS: Gabapentin 100 MG CAPSULE PO SCH ×2 (08:41→19:54)
[2018-06-14] MEDS: metroNIDAZOLE 500 MG TABLET PO SCH ×3 (08:41→19:53)
[2018-06-14] MEDS: Metoprolol 100 MG TABLET PO SCH (08:41)
--- NOTE | 2018-06-14 12:06 | Infectious Disease Progress No ---
Date of Encounter: 06/14/18 Time of Encounter: 12:04 - Assessment and Plan (1) Leukocytosis Current Visit: Yes Status: Acute WBC elevated at 18 on admission. Likely secondary to osteomyelitis. Trending down. Continue to trend. Qualifiers: Leukocytosis type: unspecified Qualified Code(s): D72.829 - Elevated white blood cell count, unspecified (2) Foot osteomyelitis, left Current Visit: Yes Status: Acute Location: Left first metatarsal, left second metatarsal, and second proximal phalanx. Causative organism: Unclear. Intra-op cultures preliminarily negative. Etiology unclear, but likely secondary to recent surgical procedure. The patient denies any known trauma. X-ray of the left foot showed findings consistent with osteomyelitis of the second metatarsal and second proximal phalanx. MRI of the left foot showed findings consistent with osteomyelitis of the second metatarsal head and proximal second phalanx as well as the first metatarsal. ESR elevated at 62 with a CRP of 28. ABIs showed non-compressible vessels of the right and mild disease on the left. TCPO2 monitoring showed findings consistent with healing bilaterally. Podiatry consulted. Status post I&D of the left foot, partial second ray amputation, and bone biopsy of the left first metatarsal. Operative note reviewed. Purulence noted Intra-Op. Cultures are pending. Pathology is pending. Scheduled to go back to the OR later today for repeat washout and wound closure. Wound care and activity restrictions per the podiatry team. Continue vancomycin IV. Pharmacy to dose. Goal trough approximately 15. Continue cefepime 2 g IV every 12 hours. Continue Flagyl 500 mg IV 3 times a day. Duration of treatment depends on the clinical picture, but likely a total 6 weeks of IV antibiotics will be required. Monitor renal function and for drug toxicity and dose adjust antibiotics. account services analyst to assist with discharge planning. The patient states that he does not have electricity or running water at home, therefore, he will likely need to be placed in a rehabilitation facility to complete his IV antibiotics. Further antibiotic and OPAT recommendations to follow from the ID team pending additional cultures and clinical outcomes. Qualifiers: Osteomyelitis type: unspecified type Qualified Code(s): M86.9 - Osteomyelitis, unspecified (3) Abscess of left foot Current Visit: Yes Status: Acute Location: Left foot first interdigital space. Causative organism: Unclear. Cultures are pending. Podiatry consult and following. Status post I&D 06/12/18. Continue antibiotics as above. (4) Acute kidney injury Current Visit: Yes Status: Resolved Likely secondary to poor by mouth intake due to infectious process. Resolved. Continue to trend. Dose adjust antibiotics if needed. Avoid nephrotoxins as able. (5) Foot fracture, left Current Visit: Yes Status: Chronic Likely secondary to recent trauma. Further recommendations per the podiatry team. Qualifiers: Encounter type: sequela Fracture type: closed Qualified Code(s): S92.902S - Unspecified fracture of left foot, sequela (6) Leg edema, left Current Visit: Yes Status: Acute Likely secondary to infection. Improved. DVT study negative. (7) HLD (hyperlipidemia) Current Visit: Yes Status: Chronic Qualifiers: Hyperlipidemia type: mixed hyperlipidemia Qualified Code(s): E78.2 - Mixed hyperlipidemia (8) Type 2 diabetes mellitus with peripheral neuropathy Current Visit: Yes Status: Chronic Uncontrolled. Hemoglobin A1c is 10.2%. Recommend aggressive glucose monitoring and control to promote wound healing and prevent recurrent infection. Management per the primary team. (9) HTN (hypertension) Current Visit: Yes Status: Chronic Qualifiers: Hypertension type: essential hypertension Qualified Code(s): I10 - Essential (primary) hypertension (10) Abdominal pain Current Visit: Yes Status: Acute Etiology unclear. Check amylase, lipase, and LFTs. May need to consider RUQ UTS. Qualifiers: Abdominal location: epigastric Qualified Code(s): R10.13 - Epigastric pain - Subjective Interval history: Patient seen and examined. No acute events noted overnight. Patient reports pain in the left foot. Denies fevers, chills, or rigors. Denies chest pain, shortness of breath, or cough. Reports some nausea, but no vomiting. Complains of RUQ and epigastric pain. Denies urinary complaints or appetite changes. Denies oral thrush or new skin lesions. Scheduled to go back to the OR later today for washout and wound closure. Infect Dis PN-Objective Data - Labs CBC & Chem 7: 06/15/18 06:36 06/15/18 06:36 Labs: Laboratory Results - last 24 hr 06/13/18 06/13/18 06/13/18 07:28 11:17 16:31 WBC RBC Hgb Hct MCV MCH MCHC RDW Plt Count MPV Sodium Potassium Chloride Carbon Dioxide BUN Creatinine Est GFR ( Amer) Est GFR (Non-Af Amer) BUN/Creatinine Ratio Glucose POC Glucose 311 H 332 H 167 H Calculated Osmolality Calcium 06/13/18 06/14/18 06/14/18 20:21 04:23 04:23 WBC 17.9 H RBC 3.84 L Hgb 11.6 L Hct 34.5 L MCV 89.8 MCH 30.2 MCHC 33.6 RDW 14.1 Plt Count 253 MPV 9.8 Sodium 137 Potassium 3.9 Chloride 106 Carbon Dioxide 25 BUN 26 H Creatinine 1.11 Est GFR ( Amer) > 60 Est GFR (Non-Af Amer) > 60 BUN/Creatinine Ratio 23 Glucose 178 H POC Glucose 216 H Calculated Osmolality 293 Calcium 9.0 06/14/18 07:24 WBC RBC Hgb Hct MCV MCH MCHC RDW Plt Count MPV Sodium Potassium Chloride Carbon Dioxide BUN Creatinine Est GFR ( Amer) Est GFR (Non-Af Amer) BUN/Creatinine Ratio Glucose POC Glucose 193 H Calculated Osmolality Calcium Cultures: Cultures 06/12/18 19:20 Wound Culture - Preliminary Left Foot No growth. 06/12/18 19:20 Surgical Biopsy Culture - Preliminary Left Foot Exam - Constitutional Vitals: Temp Pulse Resp BP Pulse Ox 98.5 F 54 20 123/71 94 06/14/18 10:52 06/14/18 10:52 06/14/18 10:52 06/14/18 10:52 06/14/18 10:52 General appearance: cooperative, no acute distress, obese - Head Head exam: Present: atraumatic, normal inspection, normocephalic - Eye Eye exam: Present: EOMI, normal appearance, PERRL Pupils: Present: normal accommodation - ENT ENT exam: Present: mucous membranes moist - Neck Neck exam: Present: normal inspection - Respiratory Respiratory exam: Present: CTAB. Absent: rales, respiratory distress, rhonchi, wheezes - Cardiovascular Cardiovascular exam: Present: RRR, +S1, +S2 - GI/Abdominal GI/Abdominal exam: Present: distended (obese), hyperactive bowel sounds, soft, tenderness (Epigastric, RUQ) - Extremities Exam Extremities exam: Present: pedal edema (Trace LLE). Absent: joint swelling, tenderness Additional comments: Left foot dressing C/D/I. - Neurological Exam Neurological exam: Present: alert, oriented X3, no focal deficits - Psychiatric Psychiatric exam: Present: normal affect, normal mood - Skin Skin exam: Present: dry, intact, normal color, warm - VTE Documentation of Mechanical Device: Intermittent pneumatic compression device Consult Discharge Plan - Plan Referrals: Skye Callahan CNP [Primary Care Provider] - - Attending Attestation I examined this patient and my medical decision-making was reviewed with Marsha Eaton CNP. I agree with the documented findings, disposition and treatment plan as described except to the extent set forth below.
[2018-06-14 12:26] LABS: Alanine Aminotransferase 14 Units/L (7-52); Albumin 3.4 g/dL (3.5-5.7); Albumin/Globulin Ratio 1.4 (1.1-2.2); Alkaline Phosphatase 27 Units/L (34-104); Amylase 34 Units/L (29-103); Aspartate Amino Transferase 13 Units/L (13-39); Bilirubin,Indirect 0.4 mg/dL (0.0-1.2); Bilirubin,Total 0.4 mg/dL (0.3-1.0); Globulin 2.4 g/dL (2.4-3.5); Lipase 16 Units/L (11-82); Total Protein 5.8 g/dL (6.4-8.9)
--- NOTE | 2018-06-14 12:59 | Anesthesia Evaluation PreOp ---
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 History: CVA Other Medical History: Diabetes Type II Anesthesia History: No Prior Anesthetic Complications, Past Anesthesia (RCR) Alcohol Use: none Drug use: none Medications and Allergies Atorvastatin Calcium [Lipitor] 20 mg PO HS 06/09/18 [History] Doxycycline Hyclate [Doxycycline Hyclate] 100 mg PO BID 06/09/18 [History] Gabapentin [Neurontin] 100 mg PO BID 06/09/18 [History] Insulin Lispro Protamin/Lispro [Humalog Mix 50-50 Kwikpen] 20 units SQ BID 06/09 [History] Metformin HCl [Metformin HCl] 1,000 mg PO BID 06/09/18 [History] Metoprolol Tartrate [Metoprolol Tartrate] 100 mg PO DAILY 06/09/18 [History] 3 Allergy/AdvReac Type Severity Reaction Status Date / Time Penicillins [PCN] Allergy Anaphylaxis Verified 06/09/18 18:25 Tetanus Vaccines and Toxoid Allergy Anaphylaxis Verified 06/09/18 18:25 - Meds/Allergy Pre-op Review Medications Reviewed: Yes Allergies Reviewed: Yes Beta Blockers on Current Med List: Yes If Beta Blockers taken, Date/Time (Last Dose taken): today 850 Anesthesia Results - Labs 06/14/18 04:23 06/14/18 04:23 Anesthesia Exam Selected Entries 06/14/18 10:52 Temperature 98.5 F Pulse Rate 54 Respiratory Rate 20 Blood Pressure 123/71 O2 Sat by Pulse Oximetry 94 Oxygen Delivery Method Room Air NPO (# of Hours): 8 - HEENT Pupil (Motor): EOMI Mallampati: II Teeth: Normal Oral Opening: Greater than 3 - UNIVERSAL GRINDER OPERATOR LOC: Oriented UNIVERSAL GRINDER OPERATOR Motor: Normal RUE, Normal LUE, Normal RLE, Normal LLE, Normal Face UNIVERSAL GRINDER OPERATOR Sensory: Normal: RUE, LUE, RLE, LLE, Face - Cardiac Rhythm: Regular Murmur: None - Pulmonary Breath Sounds: bilateral Clear Respiratory Effort: Symmetrical Anesthesia Assess/Plan ASA Score: 3 Modified Bel[place] Scale for Level of Consciousness: Cooperative, oriented, and tranquil Anesthetic Plan: General Monitoring Plan: Standard Monitors Recovery Plan: PACU
--- NOTE | 2018-06-14 13:25 | Podiatry Progress Note ---
Date of Encounter: 06/14/18 Time of Encounter: 12:45 - Assessment and Plan (1) Abscess of left foot Current Visit: Yes Status: Acute (2) Osteomyelitis Current Visit: Yes Status: Acute Qualifiers: Osteomyelitis type: subacute Osteomyelitis location: foot Laterality: left Qualified Code(s): M86.272 - Subacute osteomyelitis, left ankle and foot Subjective Interval history: The patient's erythema has nearly resolved. There is no purulent drainage expressed from the surgical site. Patient is being brought back to the operating room for washout and repair of the left foot wound. Nature procedure , risks first benefits potential complications consequences of surgery and his condition discussed at length. All his questions were answered informed consent was signed and we will proceed at this time. Objective - Vital Signs Vital Signs: Vital Signs Temp Pulse Resp BP Pulse Ox 06/14/18 10:52 98.5 F 54 20 123/71 94 06/14/18 07:18 98.4 F 59 18 126/73 92 06/13/18 23:12 97.8 F 51 14 152/84 99 06/13/18 20:17 98.7 F 62 16 144/77 94 06/13/18 16:28 97.7 F 54 20 143/58 98 Intake and Output 06/13/18 06/14/18 06/14/18 23:59 07:59 15:59 Intake Total 240 / 240 520 / 520 0 / 0 Output Total 720 / 720 180 / 180 Balance -480 / -480 340 / 340 0 / 0 Intake: IV Fluids 520 / 520 Maxipime 2,000 MG In Water for 20 / 20 inj. (sterile) 20 ML @ 300 mls/ hr IVPB Q12H [facility] Rx#:[id number] Vancocin 1,750 MG In 0.9 % 500 / 500 Sodium Chloride 500 ML @ 333. 333 mls/hr IVPB Q12H [facility] Rx#: [id number] Oral 240 / 240 0 / 0 Output: Urine 720 / 720 180 / 180 Other: Meal Dinner NPO Percent of Meal Consumed 100% Blood Glucose* 216 193 145 - Lab Result Diagrams: 06/14/18 04:23 06/14/18 04:23 Labs: Abnormal lab results WBC 17.9 K/mcL (4.3-11.1) H 06/14/18 04:23 RBC 3.84 M/mcL (4.19-5.50) L 06/14/18 04:23 Hgb 11.6 g/dL (12.9-16.9) L 06/14/18 04:23 Hct 34.5 % (37.5-50.1) L 06/14/18 04:23 Neutrophils # 9.5 K/mcL (1.6-8.9) H 06/13/18 02:10 Lymphocytes # 9.7 K/mcL (0.6-4.6) H 06/13/18 02:10 Reactive Lymphocytes Present (Not Present) A 06/13/18 02:10 Toxic Granulation Present (Not Present) A 06/12/18 01:07 ESR 62 mm/hr (0-10) H 06/09/18 16:48 BUN 26 mg/dL (8-23) H 06/14/18 04:23 Glucose 178 mg/dL (70-105) H 06/14/18 04:23 POC Glucose 193 mg/dL (70-99) H 06/14/18 07:24 Hemoglobin A1c 10.2 % (-5.6) H 06/09/18 16:48 Alkaline Phosphatase 27 Units/L (34-104) L 06/14/18 04:23 C-Reactive Protein 28 mg/L (Less than 10) H 06/09/18 16:48 Serum Total Protein 5.8 g/dL (6.4-8.9) L 06/14/18 04:23 Albumin 3.4 g/dL (3.5-5.7) L 06/14/18 04:23 Microbiology, Last 48 Hours 06/12/18 19:20 Wound Culture - Preliminary Left Foot No growth. 06/12/18 19:20 Surgical Biopsy Culture - Preliminary Left Foot - VTE Documentation of Mechanical Device: Intermittent pneumatic compression device Consult Discharge Plan - Plan Referrals: Skye Callahan, ADRIANO [Primary Care Provider] -
[2018-06-14] MEDS ORDERED: Vancomycin 1,000 MG VIAL ONE (13:34)
[2018-06-14] MEDS ORDERED: Lidocaine 1% 20 ML MDV ONE (13:37)
[2018-06-14] MEDS ORDERED: EPHEDrine 50 MG/ML VIAL ONE (14:04)
[2018-06-14] MEDS ORDERED: *HR* Midazolam HCl 2 MG/2 ML VIAL ONE (14:04)
[2018-06-14] MEDS ORDERED: *HR* Propofol 200 MG/20 ML VIAL IVP ONE (14:04)
[2018-06-14] MEDS ORDERED: *HR* FentaNYL (PF) 100 MCG/2 ML VIAL ONE (14:04)
[2018-06-14] MEDS ORDERED: Lidocaine -MPF 2% 2 ML VIAL ONE (14:12)
[2018-06-14] MEDS ORDERED: Ondansetron 4 MG/2 ML VIAL ONE (14:12)
[2018-06-14] MEDS ORDERED: Dexamethasone 4 MG/ML VIAL ONE (14:12)
--- NOTE | 2018-06-14 14:25 | Operative Note ---
Date of procedure: 06/14/18 Pre-op diagnosis: left foot wound 7.5cmx2.5x3cm Post-op diagnosis: same Procedure: wash out and repair of left foot wound Implants: none Complications: none Local Anesthetics: 1% Lidocaine HCL SubQ (cc) Surgeon: Tam Ramos Was there an promotions assistant sales marketing present: No Estimated blood loss (cc): 5 Specimen: none Condition: stable Disposition: PACU Procedure in Detail: Indications: 63 year old diabetic male with left foot wound is s/p partial 2nd ray amputation. Cellulitis on the dorsum of the foot has resolved. There are no signs of infection. Patient being brought back to the operating room for washout and repair of left foot wound. Informed consent obtained. Patient understood there are no guarantees and he will heel the wound and glycemic control was encouraged. He was informed of his elevated A1c. Patient was brought into the operating room placed on the operating room table in the supine position. The left foot was scrubbed prepped and draped in the usual sterile fashion. 1% lidocaine plain was injected into the patient's left foot and the following procedure began. Washout and repair of left foot wound. Attention was directed to the dorsal aspect of the patient's left foot where wound with the above measurements was present. The wound extended into the interspace where the toe amputation was left open. The wound margins were freshened and a curette was used to remove any non-granular tissue from the wound base. There was no devitalized tissue present. There was no purulence able to be expressed. The site was irrigated with normal sterile saline with vancomycin. Following irrigation a #15 blade was used to freshen the wound margins and with the wound margins with healthy bleeding tissue and no devitalized tissue in the wound wound was deemed adequate for repair and 0 Prolene was used to reapproximate the skin edges. Adequate hemostasis was present at the conclusion of the procedure and prior to repair of the wound. No tourniquet was utilized during the entire procedure. After the wound was completely closed postoperative bandaging was applied consisting of Adaptic, 4 x 4 gauze Kerlix and an Saad wrap. Patient may ambulate on heel only in surgical shoe. Continue IV antibiotics. Patient was taken to the PACU with vital signs stable and vascular status intact to the remaining digits of the left foot.
[2018-06-14] MEDS ORDERED: Ondansetron 4 MG/2 ML VIAL IVP ONE (14:33)
[2018-06-14] MEDS ORDERED: *HR* Morphine 2 MG/ML SYRINGE IVP PRN (14:33)
--- NOTE | 2018-06-14 14:41 | Anesthesia Evaluation Post Op ---
Date of Encounter: 06/14/18 Time of Encounter: 14:40 - Vital Signs Vital Signs: Selected Entries 06/14/18 14:21 06/14/18 14:31 Temperature 97.9 F Pulse Rate 54 Respiratory Rate 16 Blood Pressure 125/84 O2 Sat by Pulse Oximetry 98 - Lungs Lungs: Clear Ascult./Percussion - Airway Airway: Non-obstructed - Cardiovascular Regular Rate - Mental Status Mental Status: Alert & Oriented, Answers Appropriately - Nausea Vomiting Nausea Vomiting: Not Present - Hydration Hydration: Ice chips, Has not voided - Discharge PostOp Status: Transfer Patient to floor
[2018-06-14] MEDS ORDERED: D5% in Water 1,000 ML IVC PRN (14:54)
[2018-06-14] MEDS ORDERED: *HR* HYDROcodone/Acet 5/325 mg TABLET PO PRN (14:54)
[2018-06-14] MEDS ORDERED: hydrOXYzine pamoate 25 MG CAPSULE PO PRN (14:54)
[2018-06-14] MEDS ORDERED: *HR* Dextrose 50 % in Water (Syg) 50 ML SYRINGE IVP PRN (14:54)
[2018-06-14] MEDS ORDERED: Dextrose Gel 15 GM/37.5 ML TUBE PO PRN ×2 (14:54)
[2018-06-14] MEDS ORDERED: *HR* FentaNYL (PF) 100 MCG/2 ML VIAL IVP PRN (14:54)
[2018-06-14] MEDS ORDERED: Naloxone 0.4 MG/ML INJ IVP PRN (14:54)
--- NOTE | 2018-06-14 15:15 | Internal Med Progress Note ---
Hospitalist Progress Note - Encounter Date of Encounter: 06/14/18 Time of Encounter: 11:00 - Exam Vitals: Temp Pulse Resp BP Pulse Ox 98.5 F 61 16 132/65 94 06/14/18 15:02 06/14/18 15:02 06/14/18 15:02 06/14/18 15:02 06/14/18 15:02 Exam: Gen - Awake, alert, no acute distress HEENT - NCAT, PERRLA, EOMI, hearing grossly intact, oropharynx benign CV - RRR, normal S1 and S2, no M/R/G, trace L > R BLE edema Resp - Normal WOB, CTAB, no W/R/R GI - Soft, NT/ND, no masses, normal bowel sounds, no HSP Skin - Warm, dry; left foot with bulky dressing in place; wound/incision not assessed Psych - Normal mood and affect, no depression or anxiety - Assessment and Plan (1) Foot osteomyelitis, left Current Visit: Yes Status: Acute Assessment and Plan: MRI confirmed for osteoarthritis and fracture. S/p I&D of left foot abscess and partial amputation 2nd digit on 06/12/18. Return to OR on 06/14/18 for repeat washout/repair of left foot wound. Continue IV cefepime and Flagyl; will likely need 6 weeks of IV ATB. Cultures pending. ID and Podiatry following. He will likely need to be discharged to SNF for IV ATB's as he does not have electricity or running water at home area and social work coordinator assisting with placement. (2) Foot fracture, left Current Visit: Yes Status: Chronic Assessment and Plan: plan as noted above (3) HTN (hypertension) Current Visit: Yes Status: Chronic Assessment and Plan: per hx. BP variable but acceptable. Continue home BP medication. Monitor BP and titrate PRN (4) HLD (hyperlipidemia) Current Visit: Yes Status: Chronic Assessment and Plan: Continue home medications. (5) Type 2 diabetes mellitus with peripheral neuropathy Current Visit: Yes Status: Chronic Assessment and Plan: per hx. Uncontrolled; Hgb A1c 10.2%. Holding home oral hypoglycemics. Blood sugars uncontrolled and long-acting insulin was added and increased. Cont high dose SSI. Blood sugars improved on 06/14 exam however he has been NPO while waiting to go to surgery. Monitor blood sugars and titrate insulin regimen PRN (6) Acute kidney injury Current Visit: Yes Status: Resolved Assessment and Plan: Cr peaked at 1.6; baseline normal. Suspect pre-renal. Renal function normalized with IV fluids. Avoid nephrotoxic agents as possible. Intermittently monitor (7) Leg edema, left Current Visit: Yes Status: Acute Assessment and Plan: LLE U/S and DVT unremarkable. Suspect edema secondary to osteoarthritis. Continue treating also minus as noted above ruled out DVT. Edema may be related to left foot infection. Treating left foot osteomyelitis as per above. (8) Anxiety Current Visit: Yes Status: Acute Assessment and Plan: appears controlled. Cont PRN hydroxyzine (9) Leukocytosis Current Visit: Yes Status: Acute Assessment and Plan: WBC 18K; likely secondary to osteomyelitis however per chart review WBC has been elevated since 10/2017. Continue treating osteo-myelitis as noted above. He may benefit from hematology referral outpatient if leukocytosis persists despite treatment of infection DVT Prophylaxis: lovenox - Time Spent with Patient Total time spent is greater than 50% in coordination of care (as documented) at patient's floor/unit and/or counseling patient: Internal Medicine: Result - Labs CBC & Chem 7: 06/14/18 04:23 06/14/18 04:23 Labs: Short CBC 06/14/18 Range/Units 04:23 WBC 17.9 H (4.3-11.1) K/mcL Hgb 11.6 L (12.9-16.9) g/dL Hct 34.5 L (37.5-50.1) % Plt Count 253 (140-400) K/mcL BMP 06/14/18 04:23 Sodium 137 Potassium 3.9 Chloride 106 Carbon Dioxide 25 BUN 26 H Creatinine 1.11 Glucose 178 H Calcium 9.0 Liver Function 06/14/18 Range/Units 04:23 Total Bilirubin 0.4 (0.3-1.0) mg/dL Direct Bilirubin 0.0 (0.0-0.2) mg/dL AST 13 (13-39) Units/L ALT 14 (7-52) Units/L Alkaline Phosphatase 27 L (34-104) Units/L Albumin 3.4 L (3.5-5.7) g/dL - VTE Documentation of Mechanical Device: Intermittent pneumatic compression device Consult Discharge Plan - Plan Referrals: Skye Callahan, VP [employer] MANAGEMENT [Primary Care Provider] - (1) Foot osteomyelitis, left Qualifiers: Osteomyelitis type: unspecified type Qualified Code(s): M86.9 - Osteomyelitis , unspecified (2) Foot fracture, left Qualifiers: Encounter type: sequela Fracture type: closed Qualified Code(s): S92.902S - Unspecified fracture of left foot, sequela (3) HTN (hypertension) Qualifiers: Hypertension type: essential hypertension Qualified Code(s): I10 - Essential (primary) hypertension (4) HLD (hyperlipidemia) Qualifiers: Hyperlipidemia type: mixed hyperlipidemia Qualified Code(s): E78.2 - Mixed hyperlipidemia (9) Leukocytosis Qualifiers: Leukocytosis type: unspecified Qualified Code(s): D72.829 - Elevated white blood cell count, unspecified
[2018-06-14] MEDS: *HR* HYDROcodone/Acet 10/325 mg TABLET PO PRN (19:54)
[2018-06-15] MEDS: *HR* Enoxaparin 40 MG/0.4 ML SYRINGE SQ SCH (06:22)
[2018-06-15 07:10] LABS: Hematocrit 32.2 % (37.5-50.1); Hemoglobin 10.9 g/dL (12.9-16.9); Mean Corpuscular HGB Conc 33.9 g/dL (31.6-35.5); Mean Corpuscular Hemoglobin 30.4 pg (28.0-33.3); Mean Corpuscular Volume 89.9 fL (83.0-100.0); Mean Platelet Volume 10.1 fL (9.4-12.4); Platelet Count 249 K/mcL (140-400); Red Blood Count 3.58 M/mcL (4.19-5.50); Red Cell Distribution Width 13.9 % (11.5-14.5)
[2018-06-15 07:13] LABS: BUN/Creatinine Ratio 17 (6-26); Blood Urea Nitrogen 19 mg/dL (8-23); Calcium 8.9 mg/dL (8.6-10.3); Carbon Dioxide 25 mEq/L (23-29); Chloride 103 mEq/L (98-107); Glucose 259 mg/dL (70-105); Osmolality,Calculated 291 (280-300); Potassium 3.9 mEq/L (3.5-5.1); Sodium 135 mEq/L (136-145); eGFR For Non-African Americans > 60 (> 60)
[2018-06-15] MEDS: metroNIDAZOLE 500 MG TABLET PO SCH ×3 (08:04→21:16)
[2018-06-15] MEDS: Metoprolol 100 MG TABLET PO SCH (08:04)
[2018-06-15] MEDS: Gabapentin 100 MG CAPSULE PO SCH ×2 (08:04→21:16)
[2018-06-15] MEDS: Acetaminophen 325 MG TABLET PO PRN (08:05)
[2018-06-15] MEDS: Insulin DETEMIR 100 UNIT/ML X5UNITS SQ SCH ×2 (08:08→21:17)
[2018-06-15] MEDS: Insulin LISPRO 300 UNITS/3 ML VIAL SQ SCH ×4 (08:12→21:18)
[2018-06-15] MEDS: 0.9 % Sodium Chloride 1,000 ML IVC SCH ×2 (09:40→18:16)
[2018-06-15] MEDS: Cefepime HCl 2,000 MG in Water for inj. (sterile) 20 ML 20 ML IVPB SCH ×2 (11:15→21:17)
--- NOTE | 2018-06-15 13:31 | Podiatry Progress Note ---
Date of Encounter: 06/15/18 Time of Encounter: 12:15 - Assessment and Plan (1) Foot osteomyelitis, left Current Visit: Yes Status: Acute S/p incision and drainage left foot, partial 2nd ray amputation (metatarsal and toe), bone biopsy first metatarsal for a left foot abscess, left foot osteomyelitis by Dr. Ramos on 06/12/18. s/p wash out and repair of left foot wound by Dr. Ramos on 06/14/18 WBC: 18.3 Incision line well approximated and healing uneventfully, erythema has resolved wit decreased edema. Microbiology 06/12/18 19:20 Surgical Biopsy Culture - Preliminary Left Foot 06/12/18 19:20 Wound Culture - Final Left Foot No growth. Plan: -Dressing changed at bedside, irrigated with saline, pat dry, adaptic applied with 4x4 dry sterile gauze, kerlix, tape. -Antibiotics per ID. -Remain protective weight bearing with post op shoe. Continue daily dressing changes while Inpatient. -Will continue to follow patient closely. -nutritional services host for discharge planning. Qualifiers: Osteomyelitis type: unspecified type Qualified Code(s): M86.9 - Osteomyelitis, unspecified (2) Leg edema, left Current Visit: Yes Status: Acute (3) Leukocytosis Current Visit: Yes Status: Acute Qualifiers: Leukocytosis type: unspecified Qualified Code(s): D72.829 - Elevated white blood cell count, unspecified Subjective Interval history: Patient is s/p incision and drainage left foot, partial 2nd ray amputation ( metatarsal and toe), bone biopsy first metatarsal on 06/12/18 for a left foot abscess, left foot osteomyelitis. Patient is s/p wash out and repair of left foot wound by Dr. Ramos on 06/14/18 Patient is sitting up in chair eating lunch. Patient denies fever, chills. Patient states the left foot was painful earlier today prior to his pain pill. States the pain is tolerable since receiving his pain medication. Objective - Vital Signs Vital Signs: Vital Signs Temp Pulse Resp BP Pulse Ox 06/15/18 11:38 98.5 F 52 16 157/88 96 06/15/18 06:54 97.9 F 67 16 141/72 97 06/15/18 05:01 98.2 F 66 14 136/75 97 06/14/18 23:36 98.1 F 70 16 135/76 97 06/14/18 18:40 98.4 F 71 14 136/81 95 06/14/18 17:10 98.6 F 65 16 143/80 93 06/14/18 16:22 97.8 F 63 18 138/74 93 06/14/18 15:35 98.2 F 72 15 128/80 92 06/14/18 15:02 98.5 F 61 16 132/65 94 06/14/18 14:51 97.9 F 66 16 142/70 97 06/14/18 14:41 62 16 140/76 95 06/14/18 14:31 54 16 125/84 98 06/14/18 14:21 97.9 F 52 12 98/67 95 Intake and Output 06/14/18 06/15/18 06/15/18 23:59 07:59 15:59 Intake Total 500 / 500 360 / 360 Output Total 600 / 600 700 / 700 Balance -100 / -100 -700 / -700 360 / 360 Intake: IV Fluids Maxipime 2,000 MG In Water for inj. (sterile) 20 ML @ 300 mls/ hr IVPB Q12H [facility] Rx#:[id number] Oral 480 / 480 360 / 360 Output: Urine 600 / 600 700 / 700 Other: Meal Dinner Lunch Percent of Meal Consumed 100% 100% Blood Glucose* 319 241 218 - Exam Exam: General appearance: alert awake oriented X 3. Calm and pleasant, no acute distress.. Vascular: No evidence of cyanosis, pallor or rubor, Edema graded at 1+/4, Skin Temperature warm, No calf pain with manual compression. capillary refill time is immediate to digits. Neurologic: Sensation intact with light touch to foot. . Postop Exam: S/P sutures intact to incision line, well approximated. No signs of dehiscence, no periwound erythema, no streaking, no pus, no odor. Minimal edema. - Lab Result Diagrams: 06/15/18 06:36 06/15/18 06:36 Labs: Abnormal lab results WBC 18.3 K/mcL (4.3-11.1) H 06/15/18 06:36 RBC 3.58 M/mcL (4.19-5.50) L 06/15/18 06:36 Hgb 10.9 g/dL (12.9-16.9) L 06/15/18 06:36 Hct 32.2 % (37.5-50.1) L 06/15/18 06:36 Neutrophils # 9.5 K/mcL (1.6-8.9) H 06/13/18 02:10 Lymphocytes # 9.7 K/mcL (0.6-4.6) H 06/13/18 02:10 Reactive Lymphocytes Present (Not Present) A 06/13/18 02:10 Toxic Granulation Present (Not Present) A 06/12/18 01:07 ESR 62 mm/hr (0-10) H 06/09/18 16:48 Sodium 135 mEq/L (136-145) L 06/15/18 06:36 Glucose 259 mg/dL (70-105) H 06/15/18 06:36 POC Glucose 241 mg/dL (70-99) H 06/15/18 07:44 Hemoglobin A1c 10.2 % (-5.6) H 06/09/18 16:48 Alkaline Phosphatase 27 Units/L (34-104) L 06/14/18 04:23 C-Reactive Protein 28 mg/L (Less than 10) H 06/09/18 16:48 Serum Total Protein 5.8 g/dL (6.4-8.9) L 06/14/18 04:23 Albumin 3.4 g/dL (3.5-5.7) L 06/14/18 04:23 Vancomycin Trough 23 mcg/mL (5-10) H 06/15/18 06:36 Microbiology, Last 48 Hours 06/12/18 19:20 Surgical Biopsy Culture - Preliminary Left Foot 06/12/18 19:20 Wound Culture - Final Left Foot No growth. - VTE Documentation of Mechanical Device: Intermittent pneumatic compression device Consult Discharge Plan - Plan Referrals: Marsha Eaton CNP [Advanced Practice Nurse] - 07/05/18 9:20 am Skye Callahan CNP [Primary Care Provider] -
--- NOTE | 2018-06-15 13:32 | Infectious Disease Progress No ---
Date of Encounter: 06/15/18 Time of Encounter: 09:10 - Assessment and Plan (1) Leukocytosis Current Visit: Yes Status: Acute WBC elevated at 18 on admission. Likely secondary to osteomyelitis. Trending down initially, but back up today --> secondary to surgery vs. other. ROS negative except for pain in the left foot. Previously-reports abdominal pain has resolved. No shortness of breath or cough. No other skin or soft tissue infections noted on exam. Continue to trend. Qualifiers: Leukocytosis type: unspecified Qualified Code(s): D72.829 - Elevated white blood cell count, unspecified (2) Foot osteomyelitis, left Current Visit: Yes Status: Acute Location: Left first metatarsal, left second metatarsal, and second proximal phalanx. Causative organism: Unclear. Intra-op cultures preliminarily negative. Etiology unclear, but likely secondary to recent surgical procedure. The patient denies any known trauma. X-ray of the left foot showed findings consistent with osteomyelitis of the second metatarsal and second proximal phalanx. MRI of the left foot showed findings consistent with osteomyelitis of the second metatarsal head and proximal second phalanx as well as the first metatarsal. ESR elevated at 62 with a CRP of 28. ABIs showed non-compressible vessels of the right and mild disease on the left. TCPO2 monitoring showed findings consistent with healing bilaterally. Podiatry consulted. Status post I&D of the left foot, partial second ray amputation, and bone biopsy of the left first metatarsal. Operative note reviewed. Purulence noted Intra-Op. Cultures are preliminarily negative. Pathology of the left second toe was positive for acute osteomyelitis. Status post repeat washout with wound closure 06/14/[address] Ramos. Wound care and activity restrictions per the podiatry team. Continue vancomycin IV. Pharmacy to dose. Goal trough approximately 15. Continue cefepime 2 g IV every 12 hours. Continue Flagyl 500 mg PO TID. Duration of treatment depends on the clinical picture, but likely a total 6 weeks of IV antibiotics will be required. If nothing grows on the cultures, will likely need IV Vanc and Cefepime on discharge. Will also need PO Flagyl if the anaerobic cultures aren't finalized prior to discharge. Monitor renal function and for drug toxicity and dose adjust antibiotics. player services representative to assist with discharge planning. The patient states that he does not have electricity or running water at home, therefore, he will likely need to be placed in a rehabilitation facility to complete his IV antibiotics. He tells me that he will have electric and water hooked up at the end of the month, so he may only need rehab for a few weeks. Consult VAT for PICC placement prior to discharge. Will need weekly CBC, BUN/Cr, ESR, CRP, and Vanc trough. Will need weekly PICC care per protocol. Follow up with ID 07/05/18 at 0920. Qualifiers: Osteomyelitis type: unspecified type Qualified Code(s): M86.9 - Osteomyelitis, unspecified (3) Abscess of left foot Current Visit: Yes Status: Acute Location: Left foot first interdigital space. Causative organism: Unclear. Cultures are pending. Podiatry consult and following. Status post I&D 06/12/18. Continue antibiotics as above. (4) Acute kidney injury Current Visit: Yes Status: Resolved Likely secondary to poor by mouth intake due to infectious process. Resolved. Continue to trend. Dose adjust antibiotics if needed. Avoid nephrotoxins as able. (5) Foot fracture, left Current Visit: Yes Status: Chronic Likely secondary to recent trauma. Further recommendations per the podiatry team. Qualifiers: Encounter type: sequela Fracture type: closed Qualified Code(s): S92.902S - Unspecified fracture of left foot, sequela (6) Leg edema, left Current Visit: Yes Status: Acute Likely secondary to infection. Improved. DVT study negative. (7) HLD (hyperlipidemia) Current Visit: Yes Status: Chronic Qualifiers: Hyperlipidemia type: mixed hyperlipidemia Qualified Code(s): E78.2 - Mixed hyperlipidemia (8) Type 2 diabetes mellitus with peripheral neuropathy Current Visit: Yes Status: Chronic Uncontrolled. Hemoglobin A1c is 10.2%. Recommend aggressive glucose monitoring and control to promote wound healing and prevent recurrent infection. Management per the primary team. (9) HTN (hypertension) Current Visit: Yes Status: Chronic Qualifiers: Hypertension type: essential hypertension Qualified Code(s): I10 - Essential (primary) hypertension (10) Abdominal pain Current Visit: Yes Status: Acute Etiology unclear, but appears resolved. Check amylase, lipase, and LFTs. --> normal. Qualifiers: Abdominal location: epigastric Qualified Code(s): R10.13 - Epigastric pain - Subjective Interval history: Patient seen and examined. No acute events noted overnight. Patient reports pain in the left foot since surgery yesterday. Denies fevers, chills, or rigors. Denies chest pain, shortness of breath, or cough. Denies nausea, vomiting, or abdominal pain today. Denies urinary complaints or appetite changes. Denies oral thrush or new skin lesions. Infect Dis PN-Objective Data - Labs CBC & Chem 7: 06/15/18 06:36 06/15/18 06:36 Labs: Laboratory Results - last 24 hr 06/14/18 06/14/18 06/14/18 10:57 16:03 20:14 WBC RBC Hgb Hct MCV MCH MCHC RDW Plt Count MPV Sodium Potassium Chloride Carbon Dioxide BUN Creatinine Est GFR ( Amer) Est GFR (Non-Af Amer) BUN/Creatinine Ratio Glucose POC Glucose 145 H 99 319 H Calculated Osmolality Calcium Vancomycin Trough 06/15/18 06/15/18 06/15/18 06:36 06:36 06:36 WBC 18.3 H RBC 3.58 L Hgb 10.9 L Hct 32.2 L MCV 89.9 MCH 30.4 MCHC 33.9 RDW 13.9 Plt Count 249 MPV 10.1 Sodium 135 L Potassium 3.9 Chloride 103 Carbon Dioxide 25 BUN 19 Creatinine 1.12 Est GFR ( Amer) > 60 Est GFR (Non-Af Amer) > 60 BUN/Creatinine Ratio 17 Glucose 259 H POC Glucose Calculated Osmolality 291 Calcium 8.9 Vancomycin Trough 23 H 06/15/18 07:44 WBC RBC Hgb Hct MCV MCH MCHC RDW Plt Count MPV Sodium Potassium Chloride Carbon Dioxide BUN Creatinine Est GFR ( Amer) Est GFR (Non-Af Amer) BUN/Creatinine Ratio Glucose POC Glucose 241 H Calculated Osmolality Calcium Vancomycin Trough Cultures: Cultures 06/12/18 19:20 Surgical Biopsy Culture - Preliminary Left Foot 06/12/18 19:20 Wound Culture - Final Left Foot No growth. - Impressions Impressions Foot X-Ray 06/14/18 16:05 IMPRESSION: Postoperative changes relating to amputation of a portion of the 2nd ray as above. No evidence for acute complication is seen. D/ / 06/14/2018 17:52:58 Franco Phoenix MD / marion Interpreting Provider: Franco Phoenix MD Exam - Constitutional Vitals: Temp Pulse Resp BP Pulse Ox 98.5 F 52 16 157/88 96 06/15/18 11:38 06/15/18 11:38 06/15/18 11:38 06/15/18 11:38 06/15/18 11:38 General appearance: cooperative, no acute distress, obese - Head Head exam: Present: atraumatic, normal inspection, normocephalic - Eye Eye exam: Present: EOMI, normal appearance, PERRL Pupils: Present: normal accommodation - ENT ENT exam: Present: mucous membranes moist - Neck Neck exam: Present: normal inspection - Respiratory Respiratory exam: Present: CTAB. Absent: rales, respiratory distress, rhonchi, wheezes - Cardiovascular Cardiovascular exam: Present: RRR, +S1, +S2 - GI/Abdominal GI/Abdominal exam: Present: distended (obese), normal bowel sounds, soft. Absent: tenderness - Extremities Exam Extremities exam: Present: pedal edema (trace LLE). Absent: joint swelling, tenderness Additional comments: Left foot dressing with small amount of old bloody drainage noted. - Neurological Exam Neurological exam: Present: alert, oriented X3, no focal deficits - Psychiatric Psychiatric exam: Present: normal affect, normal mood - Skin Skin exam: Present: dry, intact, normal color, warm - VTE Documentation of Mechanical Device: Intermittent pneumatic compression device Consult Discharge Plan - Plan Referrals: Skye Callahan CNP [Primary Care Provider] - Asha Eaton CNP [Advanced Practice Nurse] - 07/05/18 9:20 am - Attending Attestation I examined this patient and my medical decision-making was reviewed with the asha eaton CNP. I agree with the documented findings, disposition and treatment plan as described except to the extent set forth below.
[2018-06-15] MEDS ORDERED: Lidocaine -MPF 1% 5 ML AMPUL INFILT ONE (13:41)
[2018-06-15] MEDS: *HR* HYDROcodone/Acet 10/325 mg TABLET PO PRN (15:51)
[2018-06-16 01:48] LABS: Hematocrit 37.5 % (37.5-50.1); Hemoglobin 11.8 g/dL (12.9-16.9); Mean Corpuscular HGB Conc 31.5 g/dL (31.6-35.5); Mean Corpuscular Hemoglobin 30.1 pg (28.0-33.3); Mean Corpuscular Volume 95.7 fL (83.0-100.0); Mean Platelet Volume 10.2 fL (9.4-12.4); Platelet Count 224 K/mcL (140-400); Red Blood Count 3.92 M/mcL (4.19-5.50); Red Cell Distribution Width 14.2 % (11.5-14.5)
[2018-06-16 02:38] LABS: BUN/Creatinine Ratio 20 (6-26); Blood Urea Nitrogen 24 mg/dL (8-23); Calcium 9.1 mg/dL (8.6-10.3); Carbon Dioxide 20 mEq/L (23-29); Chloride 105 mEq/L (98-107); Glucose 198 mg/dL (70-105); Osmolality,Calculated 294 (280-300); Sodium 137 mEq/L (136-145); eGFR For Non-African Americans > 60 (> 60)
[2018-06-16] MEDS: *HR* Enoxaparin 40 MG/0.4 ML SYRINGE SQ SCH (05:03)
[2018-06-16] MEDS: Metoprolol 100 MG TABLET PO SCH (09:07)
[2018-06-16] MEDS: Gabapentin 100 MG CAPSULE PO SCH ×2 (09:07→20:34)
[2018-06-16] MEDS: metroNIDAZOLE 500 MG TABLET PO SCH ×3 (09:07→20:34)
[2018-06-16] MEDS: Insulin DETEMIR 100 UNIT/ML X5UNITS SQ SCH ×2 (09:09→20:34)
[2018-06-16] MEDS: Insulin LISPRO 300 UNITS/3 ML VIAL SQ SCH ×4 (09:09→20:34)
--- NOTE | 2018-06-16 09:41 | Infectious Disease Progress No ---
Date of Encounter: 06/16/18 Time of Encounter: 09:38 - Assessment and Plan (1) Leukocytosis Current Visit: Yes Status: Acute WBC elevated at 18 on admission. Likely secondary to osteomyelitis. Trending down initially, but went back up post-op --> secondary to surgery vs. other. Remains elevated at 18 today. ROS negative except for pain in the left foot. Previously-reports abdominal pain has resolved. No shortness of breath or cough. No other skin or soft tissue infections noted on exam. Continue to trend. Check peripheral smear. Qualifiers: Leukocytosis type: unspecified Qualified Code(s): D72.829 - Elevated white blood cell count, unspecified (2) Foot osteomyelitis, left Current Visit: Yes Status: Acute Location: Left first metatarsal, left second metatarsal, and second proximal phalanx. Causative organism: Unclear. Intra-op cultures preliminarily negative. Etiology unclear, but likely secondary to recent surgical procedure. The patient denies any known trauma. X-ray of the left foot showed findings consistent with osteomyelitis of the second metatarsal and second proximal phalanx. MRI of the left foot showed findings consistent with osteomyelitis of the second metatarsal head and proximal second phalanx as well as the first metatarsal. ESR elevated at 62 with a CRP of 28. ABIs showed non-compressible vessels of the right and mild disease on the left. TCPO2 monitoring showed findings consistent with healing bilaterally. Podiatry consulted. Status post I&D of the left foot, partial second ray amputation, and bone biopsy of the left first metatarsal. Operative note reviewed. Purulence noted Intra-Op. Cultures are preliminarily negative. Pathology of the left second toe was positive for acute osteomyelitis. Status post repeat washout with wound closure 06/14/[address] Ramos. Wound care and activity restrictions per the podiatry team. Continue vancomycin IV. Pharmacy to dose. Goal trough approximately 15. Continue cefepime 2 g IV every 12 hours. Continue Flagyl 500 mg PO TID. Duration of treatment depends on the clinical picture, but likely a total 6 weeks of IV antibiotics will be required. If nothing grows on the cultures, will likely need IV Vanc and Cefepime on discharge. Will also need PO Flagyl if the anaerobic cultures aren't finalized prior to discharge. Monitor renal function and for drug toxicity and dose adjust antibiotics. manager of allied health services to assist with discharge planning. The patient states that he does not have electricity or running water at home, therefore, he will likely need to be placed in a rehabilitation facility to complete his IV antibiotics. He tells me that he will have electric and water hooked up at the end of the month, so he may only need rehab for a few weeks. Consult VAT for PICC placement prior to discharge.--> pending placement today. Will need weekly CBC, BUN/Cr, ESR, CRP, and Vanc trough. Will need weekly PICC care per protocol. Follow up with ID 07/05/18 at 0920. Qualifiers: Osteomyelitis type: unspecified type Qualified Code(s): M86.9 - Osteomyelitis, unspecified (3) Abscess of left foot Current Visit: Yes Status: Acute Location: Left foot first interdigital space. Causative organism: Unclear. Cultures are pending. Podiatry consult and following. Status post I&D 06/12/18 with repeat washout and wound closure 06/14/18. Continue antibiotics as above. (4) Acute kidney injury Current Visit: Yes Status: Resolved Likely secondary to poor by mouth intake due to infectious process. Resolved. Continue to trend. Dose adjust antibiotics if needed. Avoid nephrotoxins as able. (5) Foot fracture, left Current Visit: Yes Status: Chronic Likely secondary to recent trauma. Further recommendations per the podiatry team. Qualifiers: Encounter type: sequela Fracture type: closed Qualified Code(s): S92.902S - Unspecified fracture of left foot, sequela (6) Leg edema, left Current Visit: Yes Status: Acute Likely secondary to infection. Improved. DVT study negative. (7) HLD (hyperlipidemia) Current Visit: Yes Status: Chronic Qualifiers: Hyperlipidemia type: mixed hyperlipidemia Qualified Code(s): E78.2 - Mixed hyperlipidemia (8) Type 2 diabetes mellitus with peripheral neuropathy Current Visit: Yes Status: Chronic Uncontrolled. Hemoglobin A1c is 10.2%. Recommend aggressive glucose monitoring and control to promote wound healing and prevent recurrent infection. Management per the primary team. (9) HTN (hypertension) Current Visit: Yes Status: Chronic Qualifiers: Hypertension type: essential hypertension Qualified Code(s): I10 - Essential (primary) hypertension (10) Abdominal pain Current Visit: Yes Status: Resolved Etiology unclear, but appears resolved. Check amylase, lipase, and LFTs. --> normal. Qualifiers: Abdominal location: epigastric Qualified Code(s): R10.13 - Epigastric pain - Subjective Interval history: Patient seen and examined. No acute events noted overnight. Patient reports mild pain in the left foot this morning. Denies fevers, chills, or rigors. Denies chest pain, shortness of breath, or cough. Denies nausea, vomiting, or abdominal pain today. Denies urinary complaints or appetite changes. Denies oral thrush or new skin lesions. Reports partial bowel movement this morning. Infect Dis PN-Objective Data - Labs CBC & Chem 7: 06/16/18 01:32 06/16/18 01:32 Labs: Laboratory Results - last 24 hr 06/15/18 06/15/18 06/15/18 11:42 15:48 19:22 WBC RBC Hgb Hct MCV MCH MCHC RDW Plt Count MPV Sodium Potassium Chloride Carbon Dioxide BUN Creatinine Est GFR ( Amer) Est GFR (Non-Af Amer) BUN/Creatinine Ratio Glucose POC Glucose 218 H 202 H 290 H Calculated Osmolality Calcium 06/16/18 06/16/18 01:32 01:32 WBC 18.4 H RBC 3.92 L Hgb 11.8 L Hct 37.5 MCV 95.7 MCH 30.1 MCHC 31.5 L RDW 14.2 Plt Count 224 MPV 10.2 Sodium 137 Potassium 4.0 Chloride 105 Carbon Dioxide 20 L BUN 24 H Creatinine 1.21 Est GFR ( Amer) > 60 Est GFR (Non-Af Amer) > 60 BUN/Creatinine Ratio 20 Glucose 198 H POC Glucose Calculated Osmolality 294 Calcium 9.1 Cultures: Cultures 06/12/18 19:20 Surgical Biopsy Culture - Preliminary Left Foot 06/12/18 19:20 Wound Culture - Final Left Foot No growth. Exam - Constitutional Vitals: Temp Pulse Resp BP Pulse Ox 97.8 F 68 18 146/69 94 06/16/18 06:25 06/16/18 06:25 06/16/18 06:25 06/16/18 06:25 06/16/18 06:25 General appearance: cooperative, no acute distress, obese - Head Head exam: Present: atraumatic, normal inspection, normocephalic - Eye Eye exam: Present: EOMI, normal appearance, PERRL Pupils: Present: normal accommodation - ENT ENT exam: Present: mucous membranes moist - Neck Neck exam: Present: normal inspection - Respiratory Respiratory exam: Present: CTAB. Absent: rales, respiratory distress, rhonchi, wheezes - Cardiovascular Cardiovascular exam: Present: RRR, +S1, +S2 - GI/Abdominal GI/Abdominal exam: Present: distended (obese), normal bowel sounds, soft. Absent: tenderness - Extremities Exam Extremities exam: Present: pedal edema (Trace LLE). Absent: joint swelling, tenderness Additional comments: Left foot dressing and post-op show C/D/I. - Neurological Exam Neurological exam: Present: alert, oriented X3, no focal deficits - Psychiatric Psychiatric exam: Present: normal affect, normal mood - Skin Skin exam: Present: dry, intact, normal color, warm - VTE Documentation of Mechanical Device: Intermittent pneumatic compression device Consult Discharge Plan - Plan Referrals: Marsha Eaton CNP [Advanced Practice Nurse] - 07/05/18 9:20 am Skye Callahan CNP [Primary Care Provider] - - Attending Attestation I examined this patient and my medical decision-making was reviewed with Marsha Eaton CNP. I agree with the documented findings, disposition and treatment plan as described except to the extent set forth below.
[2018-06-16] MEDS: Cefepime HCl 2,000 MG in Water for inj. (sterile) 20 ML 20 ML IVPB SCH ×2 (11:15→22:34)
[2018-06-16] MEDS: Ondansetron 4 MG/2 ML VIAL IVP PRN (11:15)
[2018-06-16] MEDS: *HR* HYDROcodone/Acet 10/325 mg TABLET PO PRN (14:06)
[2018-06-17 03:34] LABS: Hematocrit 32.8 % (37.5-50.1); Hemoglobin 10.6 g/dL (12.9-16.9); Mean Corpuscular HGB Conc 32.3 g/dL (31.6-35.5); Mean Corpuscular Hemoglobin 29.4 pg (28.0-33.3); Mean Corpuscular Volume 90.9 fL (83.0-100.0); Platelet Count 229 K/mcL (140-400); Red Blood Count 3.61 M/mcL (4.19-5.50); Red Cell Distribution Width 14.1 % (11.5-14.5)
[2018-06-17 03:56] LABS: BUN/Creatinine Ratio 19 (6-26); Blood Urea Nitrogen 22 mg/dL (8-23); Calcium 9.1 mg/dL (8.6-10.3); Carbon Dioxide 29 mEq/L (23-29); Chloride 104 mEq/L (98-107); Glucose 164 mg/dL (70-105); Osmolality,Calculated 293 (280-300); Potassium 3.9 mEq/L (3.5-5.1); Sodium 138 mEq/L (136-145); eGFR For Non-African Americans > 60 (> 60)
[2018-06-17] MEDS: *HR* Enoxaparin 40 MG/0.4 ML SYRINGE SQ SCH (04:19)
[2018-06-17] MEDS: Ondansetron 4 MG/2 ML VIAL IVP PRN ×2 (04:19→16:43)
--- NOTE | 2018-06-17 05:28 | Internal Med Progress Note ---
Hospitalist Progress Note - Encounter Date of Encounter: 06/15/18 Time of Encounter: 19:00 - Exam Vitals: Temp Pulse Resp BP Pulse Ox 98 F 62 16 152/78 98 06/17/18 03:05 06/17/18 03:05 06/17/18 03:05 06/17/18 03:05 06/17/18 03:05 Exam: xxx - Assessment and Plan (1) Foot osteomyelitis, left Current Visit: Yes Status: Acute (2) Type 2 diabetes mellitus with peripheral neuropathy Current Visit: Yes Status: Chronic (3) Abscess of left foot Current Visit: Yes Status: Acute (4) HTN (hypertension) Current Visit: Yes Status: Chronic (5) HLD (hyperlipidemia) Current Visit: Yes Status: Chronic DVT Prophylaxis: low risk - Summary of Assessment and Plan Summary of Assessment and Plan: SUBJECTIVE: The patient feels good. He is a left foot pain is under fair control. He is treated for diabetic ulcer/osteomyelitis in the left foot. Denies chest pain, dyspnea, coughing and wheezing. Denies abdominal pain, nausea and vomiting. She has normal urination. OBJECTIVE: Skin: Free of rash and discoloration. There is a surgical dressing applied to his left foot area. ENMT: Oral/pharyngeal mucosa is normal in appearance. Eyes: Sclera is white. There is no discharge from eyes. Respiratory: Normal breath sounds; no crackles or wheezes. CV: Heart is regular; no gallop or murmur. GI: Abdomen is soft and not tender. There is no palpable mass or visceromegaly. Neuro: There is no focal deficits. ASSESSMENT AND PLAN: SUBJECTIVE: Diabetic ulcer/osteomyelitis in the left foot. He underwent incision and drainage of left foot with partial second ray amputation (metatarsal and toe) on 06/12/18. He had washout and repair of left foot wound on 06/12/18. He is followed by podiatry and infectious disease. He is getting IV vancomycin and IV cefepime. He is on by mouth metronidazole. Type 2 diabetes mellitus with neuropathy. His hemoglobin A1c at admission was 10%. He is on diabetic diet, Levemir and when necessary Humalog. We are doing adjustments to his diabetes treatment, if needed. Hypertension. Under fair control. We will continue Lopressor. Hyperlipidemia. We will continue Lipitor. DISPOSITION: The plan is to place him in an ECF. - Time Spent with Patient Total time spent is greater than 50% in coordination of care (as documented) at patient's floor/unit and/or counseling patient: 25 - 35 minutes Plan of Care Discussed with: patient Internal Medicine: Result - Labs CBC & Chem 7: 06/17/18 03:10 06/17/18 03:10 Labs: Short CBC 06/16/18 06/17/18 Range/Units 01:32 03:10 WBC 18.4 H 17.5 H (4.3-11.1) K/mcL Hgb 11.8 L 10.6 L (12.9-16.9) g/dL Hct 37.5 32.8 L (37.5-50.1) % Plt Count 224 229 (140-400) K/mcL BMP 06/17/18 03:10 Sodium 138 Potassium 3.9 Chloride 104 Carbon Dioxide 29 BUN 22 Creatinine 1.16 Glucose 164 H Calcium 9.1 - VTE Documentation of Mechanical Device: Intermittent pneumatic compression device Consult Discharge Plan - Plan Referrals: Marsha Eaton CAMPAIGN MANAGER [Advanced Practice Nurse] - 07/05/18 9:20 am Skye Callahan CNP [Primary Care Provider] - (1) Foot osteomyelitis, left Qualifiers: Osteomyelitis type: unspecified type Qualified Code(s): M86.9 - Osteomyelitis , unspecified (4) HTN (hypertension) Qualifiers: Hypertension type: essential hypertension Qualified Code(s): I10 - Essential (primary) hypertension (5) HLD (hyperlipidemia) Qualifiers: Hyperlipidemia type: mixed hyperlipidemia Qualified Code(s): E78.2 - Mixed hyperlipidemia
--- NOTE | 2018-06-17 05:49 | Internal Med Progress Note ---
Hospitalist Progress Note - Encounter Date of Encounter: 06/17/18 Time of Encounter: 19:00 - Exam Vitals: Temp Pulse Resp BP Pulse Ox 98 F 62 16 152/78 98 06/17/18 03:05 06/17/18 03:05 06/17/18 03:05 06/17/18 03:05 06/17/18 03:05 Exam: xxx - Assessment and Plan (1) Foot osteomyelitis, left Current Visit: Yes Status: Acute (2) Type 2 diabetes mellitus with peripheral neuropathy Current Visit: Yes Status: Chronic (3) Abscess of left foot Current Visit: Yes Status: Acute (4) HTN (hypertension) Current Visit: Yes Status: Chronic (5) HLD (hyperlipidemia) Current Visit: Yes Status: Chronic DVT Prophylaxis: low risk - Summary of Assessment and Plan Summary of Assessment and Plan: SUBJECTIVE: The patient feels good. He is a left foot pain is under fair control. He is treated for diabetic ulcer/osteomyelitis in the left foot. Denies chest pain, dyspnea, coughing and wheezing. Denies abdominal pain, nausea and vomiting. She has normal urination. OBJECTIVE: Skin: Free of rash and discoloration. There is a surgical dressing applied to his left foot area. ENMT: Oral/pharyngeal mucosa is normal in appearance. Eyes: Sclera is white. There is no discharge from eyes. Respiratory: Normal breath sounds; no crackles or wheezes. CV: Heart is regular; no gallop or murmur. GI: Abdomen is soft and not tender. There is no palpable mass or visceromegaly. Neuro: There is no focal deficits. ASSESSMENT AND PLAN: SUBJECTIVE: Diabetic ulcer/osteomyelitis in the left foot. He underwent incision and drainage of left foot with partial second ray amputation (metatarsal and toe) on 06/12/18. He had washout and repair of left foot wound on 06/12/18. He is followed by podiatry and infectious disease. He is getting IV vancomycin and IV cefepime. He is on by mouth metronidazole. Type 2 diabetes mellitus with neuropathy. His hemoglobin A1c at admission was 10%. He is on diabetic diet, Levemir and when necessary Humalog. We are doing adjustments to his diabetes treatment, if needed. Hypertension. Under fair control. We will continue Lopressor. Hyperlipidemia. We will continue Lipitor. Labs: Hemoglobin is 10.6. WBC 17.5; 19.6 at admission. His BMP is normal; creatinine is 1.16. DISPOSITION: The plan is to place him in an ECF. We are hoping that that it will happen tomorrow. - Time Spent with Patient Total time spent is greater than 50% in coordination of care (as documented) at patient's floor/unit and/or counseling patient: Plan of Care Discussed with: patient Internal Medicine: Result - Labs CBC & Chem 7: 06/17/18 03:10 06/17/18 03:10 Labs: Short CBC 06/16/18 06/17/18 Range/Units 01:32 03:10 WBC 18.4 H 17.5 H (4.3-11.1) K/mcL Hgb 11.8 L 10.6 L (12.9-16.9) g/dL Hct 37.5 32.8 L (37.5-50.1) % Plt Count 224 229 (140-400) K/mcL BMP 06/17/18 03:10 Sodium 138 Potassium 3.9 Chloride 104 Carbon Dioxide 29 BUN 22 Creatinine 1.16 Glucose 164 H Calcium 9.1 - VTE Documentation of Mechanical Device: Intermittent pneumatic compression device Consult Discharge Plan - Plan Referrals: Marsha Eaton CNP [Advanced Practice Nurse] - 07/05/18 9:20 am Skye Callahan CNP [Primary Care Provider] - (1) Foot osteomyelitis, left Qualifiers: Osteomyelitis type: unspecified type Qualified Code(s): M86.9 - Osteomyelitis , unspecified (4) HTN (hypertension) Qualifiers: Hypertension type: essential hypertension Qualified Code(s): I10 - Essential (primary) hypertension (5) HLD (hyperlipidemia) Qualifiers: Hyperlipidemia type: mixed hyperlipidemia Qualified Code(s): E78.2 - Mixed hyperlipidemia
[2018-06-17] MEDS: metroNIDAZOLE 500 MG TABLET PO SCH ×2 (08:31→16:42)
[2018-06-17] MEDS: Gabapentin 100 MG CAPSULE PO SCH (08:32)
[2018-06-17] MEDS: Metoprolol 100 MG TABLET PO SCH (08:32)
[2018-06-17] MEDS: Insulin DETEMIR 100 UNIT/ML X5UNITS SQ SCH (08:32)
[2018-06-17] MEDS: Insulin LISPRO 300 UNITS/3 ML VIAL SQ SCH ×3 (08:32→16:44)
[2018-06-17] MEDS: *HR* HYDROcodone/Acet 10/325 mg TABLET PO PRN (10:56)
[2018-06-17 11:16] VITALS: BP 136/68
[2018-06-17] MEDS: Cefepime HCl 2,000 MG in Water for inj. (sterile) 20 ML 20 ML IVPB SCH (11:32)
--- NOTE | 2018-06-17 12:07 | Discharge Summary ---
Orders not resulted at time of discharge: Pending orders 06/12/18 19:20 Culture,Anaerobic [RM] Routine Culture,Tissue (Biopsy) [RM] Routine 06/18/18 04:00 BMP [Basic Metabolic Panel] AM 0400 Complete Blood Count w/o Diff [HEME] AM 0400 Date of Encounter: 06/17/18 Time of Encounter: 12:04 - Discharge Diagnosis (1) Foot osteomyelitis, left Priority: Primary Status: Acute Qualifiers: Osteomyelitis type: unspecified type Qualified Code(s): M86.9 - Osteomyelitis, unspecified (2) Abscess of left foot Priority: Primary Status: Acute (3) Type 2 diabetes mellitus with peripheral neuropathy Priority: Secondary Status: Chronic (4) HTN (hypertension) Priority: Secondary Status: Chronic Qualifiers: Hypertension type: essential hypertension Qualified Code(s): I10 - Essential (primary) hypertension (5) HLD (hyperlipidemia) Priority: Secondary Status: Chronic Qualifiers: Hyperlipidemia type: mixed hyperlipidemia Qualified Code(s): E78.2 - Mixed hyperlipidemia Hospital course: Mr. Campos is a 63 year old male. The patient was admitted with diabetic ulcer/osteomyelitis in the left foot. He underwent incision and drainage of left foot with partial second ray amputation (metatarsal and toe) on 06/12/18. He had a washout and repair of left foot wound on 06/12/18. He was followed by podiatry and infectious diseases. We put him on IV vancomycin, IV cefepime and by mouth metronidazole. He has a special boot for ambulation. He is able to ambulate on his own. His left foot pain seems to be under good control. CONDITION AT DISCHARGE: He feels good. Denies chest pain, dyspnea, coughing and wheezing. Denies abdominal pain, nausea and vomiting. He has normal urination; no urinary symptoms. Skin: Free of rash and discoloration. Musculoskeletal: The wound is looking good. See notes from podiatry. Respiratory: Normal breath sounds with no crackles and wheezes bilaterally. CV: Heart is regular with no gallop or murmur. GI: Abdomen is flat and soft with no palpable mass or visceromegaly. Neuro exam: There is no focal deficits. Normal speech, swallowing and gait. SEE DISCHARGE ORDERS/MEDICATIONS.. Discharge discussed with: patient - Time Spent with Patient Total time spent providing and/or coordinating discharge services: Greater than 30 minutes (50 minutes) - Discharge Medications Prescriptions: HYDROcodone/Acet 5/325 mg [[place] 5-325 mg] 1 tab PO Q6HR PRN 4 Days #10 tablet PRN Reason: Moderate Pain Cefepime HCl/Dextrose, Iso-Osm [Cefepime 2 gm Injection] 2 gm IV Q12HR 40 Days # 80 froz.piggy Vancomycin [Vancocin] 1,250 mg IV Q12HR 40 Days #80 vial HYDROcodone/Acet 10/325 mg [[place] 10-325 mg] 1 each PO Q6H PRN 4 Days #10 tablet PRN Reason: Severe Pain Prochlorperazine Maleate [Compazine] 10 mg PO BID 5 Days #10 tablet Home Medications: Atorvastatin Calcium [Lipitor] 20 mg PO HS 06/09/18 [History] Gabapentin [Neurontin] 100 mg PO BID 06/09/18 [History] Metoprolol Tartrate 100 mg PO DAILY 06/09/18 [History] Acetaminophen [Tylenol] 650 mg PO Q6HR PRN tablet 06/17/18 [Rx] Cefepime HCl/Dextrose, Iso-Osm [Cefepime 2 gm Injection] 2 gm IV Q12HR 40 Days # 80 froz.piggy 06/17/18 [Rx] HYDROcodone/Acet 10/325 mg [[place] 10-325 mg] 1 each PO Q6H PRN 4 Days #10 tablet 06/17/18 [Rx] HYDROcodone/Acet 5/325 mg [[place] 5-325 mg] 1 tab PO Q6HR PRN 4 Days #10 tablet 06/17/18 [Rx] Insulin DETEMIR [Levemir] 20 unit SQ BID [id number] 06/17/18 [Rx] Insulin LISPRO [HumaLOG] 0 units SQ HS vial 06/17/18 [Rx] Insulin LISPRO [HumaLOG] 0 units SQ TIDAC vial 06/17/18 [Rx] Polyethylene Glycol 3350 [MiraLAX] 17 gm PO DAILY PRN powd.pack 06/17/18 [Rx] Prochlorperazine Maleate [Compazine] 10 mg PO BID 5 Days #10 tablet 06/17/18 [Rx ] Vancomycin [Vancocin] 1,250 mg IV Q12HR 40 Days #80 vial 06/17/18 [Rx] metroNIDAZOLE [Flagyl] 500 mg PO TID tablet 06/17/18 [Rx] Allergies/Adverse Reactions: 3 Allergy/AdvReac Type Severity Reaction Status Date / Time Penicillins [PCN] Allergy Anaphylaxis Verified 06/09/18 18:25 Tetanus Vaccines and Toxoid Allergy Anaphylaxis Verified 06/09/18 18:25 Date of admission: 06/09/18 21:25 Primary care physician: Skye Callahan CNP Consults: 06/14/18 08:48 Consult to Physical Therapy [CONS] Routine Comment: Evaluate, develop and implement POC Reason for Consult: left surgery; may need SNF Does patient have active BEDREST order?: No Is patient medically & hemodynamically stable?: Yes Patient assessed for mobility or mobilized this visit?: No 06/15/18 13:41 Consult to Invasive Line Access Team [CONS] Routine Reason for Consult: Picc Line Insertion Line Type: PICC PICC line indications: halfway Med/Antibiotic Time Notified: 13:41 Call Completed: Yes Discharging clinician: Kenji Rubio Anticipated date of discharge: 06/17/18 - Constitutional General appearance: Present: A&O X 3, no acute distress, answers questions appropriately Exam: xxx - Constitutional Vitals: Temp Pulse Resp BP Pulse Ox 97.7 F 52 16 136/68 96 06/17/18 11:12 06/17/18 11:12 06/17/18 11:12 06/17/18 11:12 06/17/18 11:12 General appearance: Present: cooperative, A&O X 3, morbidly obese, pleasant, no acute distress, answers questions appropriately - Patient Status Disposition: Transfer SNF Condition: Good Overall status at discharge: patient is progressing back to baseline - Discharge Instructions Follow Up With: Marsha Eaton CNP [Advanced Practice Nurse] - 07/05/18 9:20 am Skye Callahan CNP [Primary Care Provider] - Additional Instructions: Will need weekly CBC, BUN/Cr, ESR, CRP, and Vanc trough. Will need weekly PICC care per protocol. Follow up with ID 07/05/18 at 0920. Dressing change - daily; as per podiatry - Diet and Activity Activity: increase activity as tolerated, resume usual activities as tolerated Diet: diabetic diet - VTE Documentation of Mechanical Device: Intermittent pneumatic compression device Deep Vein Thrombosis/Pulmonary Embolism Present on Admission: No
--- NOTE | 2018-06-17 12:34 | Physician Discharge Referral ---
ExtendedCare Referral Info Transfer To: F Provider in Charge: Tracy Rubio Provider in Charge after Transfer: Other (A SNF physician..) Institutional Level of Care: Skilled - Diagnosis (1) Foot osteomyelitis, left Priority: Primary Status: Acute (2) Abscess of left foot Priority: Primary Status: Acute (3) Type 2 diabetes mellitus with peripheral neuropathy Priority: Secondary Status: Chronic (4) HTN (hypertension) Priority: Secondary Status: Chronic (5) HLD (hyperlipidemia) Priority: Secondary Status: Chronic Prognosis: Fair Aware of Diagnosis: Patient Aware of Prognosis: Patient - Transfer Medications Prescriptions: HYDROcodone/Acet 5/325 mg [[place] 5-325 mg] 1 tab PO Q6HR PRN 4 Days #10 tablet PRN Reason: Moderate Pain Cefepime HCl/Dextrose, Iso-Osm [Cefepime 2 gm Injection] 2 gm IV Q12HR 40 Days # 80 froz.piggy Vancomycin [Vancocin] 1,250 mg IV Q12HR 40 Days #80 vial HYDROcodone/Acet 10/325 mg [[place] 10-325 mg] 1 each PO Q6H PRN 4 Days #10 tablet PRN Reason: Severe Pain Prochlorperazine Maleate [Compazine] 10 mg PO BID 5 Days #10 tablet Home Medications: Atorvastatin Calcium [Lipitor] 20 mg PO HS 06/09/18 [History] Gabapentin [Neurontin] 100 mg PO BID 06/09/18 [History] Metoprolol Tartrate 100 mg PO DAILY 06/09/18 [History] Acetaminophen [Tylenol] 650 mg PO Q6HR PRN tablet 06/17/18 [Rx] Cefepime HCl/Dextrose, Iso-Osm [Cefepime 2 gm Injection] 2 gm IV Q12HR 40 Days # 80 froz.piggy 06/17/18 [Rx] HYDROcodone/Acet 10/325 mg [[place] 10-325 mg] 1 each PO Q6H PRN 4 Days #10 tablet 06/17/18 [Rx] HYDROcodone/Acet 5/325 mg [[place] 5-325 mg] 1 tab PO Q6HR PRN 4 Days #10 tablet 06/17/18 [Rx] Insulin DETEMIR [Levemir] 20 unit SQ BID [id number] 06/17/18 [Rx] Insulin LISPRO [HumaLOG] 0 units SQ HS vial 06/17/18 [Rx] Insulin LISPRO [HumaLOG] 0 units SQ TIDAC vial 06/17/18 [Rx] Polyethylene Glycol 3350 [MiraLAX] 17 gm PO DAILY PRN powd.pack 06/17/18 [Rx] Prochlorperazine Maleate [Compazine] 10 mg PO BID 5 Days #10 tablet 06/17/18 [Rx ] Vancomycin [Vancocin] 1,250 mg IV Q12HR 40 Days #80 vial 06/17/18 [Rx] metroNIDAZOLE [Flagyl] 500 mg PO TID tablet 06/17/18 [Rx] Allergies/Adverse Reactions: 3 Allergy/AdvReac Type Severity Reaction Status Date / Time Penicillins [PCN] Allergy Anaphylaxis Verified 06/09/18 18:25 Tetanus Vaccines and Toxoid Allergy Anaphylaxis Verified 06/09/18 18:25 - Respiratory Orders None Smoking Cessation: Smoking cessation has been advised. For more information, call the [employer] Tobacco Quit Line at 6-461-JHRG-NOW. - Lab Orders Lab Orders: Other (include drug levels w/frequency) (Will need weekly CBC, BUN/ Cr, ESR, and CRP.) - Mobility Orders Ambulate - Rehabiliation Orders Rehab Potential: Fair Rehab Orders: Evaluation for Physical Therapy - Treatments List/Other: Will need weekly CBC, BUN/Cr, ESR, and CRP. Will need weekly midline care per protocol. Follow up with ID 07/05/18 at 0900. Dressing change - daily; as per podiatry - Diet Orders No Concentrated Sweets CERTIFICATION: I certify that the transfer of the above named patient to an Extended Care Facility is necessary for the continuing treatment of the diagnosis listed. The above information is true and accurate reflection of patient's current condition. Confidential - Redisclosure prohibited without a patient's written consent.
[2018-06-17] MEDS: Acetaminophen 325 MG TABLET PO PRN (16:42)
[2018-06-17] MEDS ORDERED: Aminoglycoside Consult 1 EACH MC ONE (18:44)
== END 2018-06-17 18:45 | DRG 617 ==
LOC: 3NENU 16:02 → EMEROO 16:02 → 3NENU 20:07 → SUATTDRO 21:25
PROVIDERS: ADMIT Family Medicine; ATTEND Internal Medicine